=== PATIENT | male | born 1955 | race Caucasian/White ===

== ENCOUNTER 2021-04-12 06:29 | Outpatient (REF) | payer MEDICARE, BC, SELFPAY ==
[2021-04-12 12:07] LABS: Prostate Specific Antigen Scr < 0.05 ng/mL (<0.05-4.0); TSH reflex Free T4 2.95 uIU/mL (0.32-4.0)
[2021-04-12 12:20] LABS: Alanine Aminotransferase 39 U/L (0-40); Albumin Level 4.3 g/dL (3.5-5.0); Alkaline Phosphatase 90 U/L (39-117); Anion Gap 11 (12-20); Aspartate Amino Transferase 32 U/L (5-37); Blood Urea Nitrogen 15 mg/dL (9-16); Calcium 9.6 mg/dL (8.4-10.2); Carbon Dioxide 33 mmol/L (22-29); Chloride 102 mmol/L (96-108); Cholesterol 124 mg/dL; Estimated Glomerular Filt Rate > 60; Glucose Fasting 115 mg/dL (60-99); HDL Cholesterol 40 mg/dL; LDL Cholesterol Calculated 67 mg/dl; Potassium 2.9 mmol/L (3.3-5.1); Sodium 143 mmol/L (135-145); Total Protein 6.7 g/dL (6.5-8.0); Triglycerides 85 mg/dL
== END 2021-04-12 06:30 | disposition home or self-care (01) ==
LOC: HO.HMGCLDS 06:29
PROVIDERS: PCP Nurse Practitioner Family; Visit Provider Nurse Practitioner Family
DX: Z00.00 Encounter for general adult medical examination without abnormal findings (principal); Z12.5 Encounter for screening for malignant neoplasm of prostate
CPT/HCPCS: 36415; 80053; 80061; 84153; 84443

== ENCOUNTER 2021-04-18 06:01 | Outpatient (REF) | payer MEDICARE, SELFPAY ==
[2021-04-18 11:19] LABS: Appearance Urine CLEAR; Color Urine YELLOW; Glucose Urine UA NEG (NEG); Leukocyte Esterase Urine NEG (NEG); Nitrite Urine NEG (NEG); Urine Blood NEG (NEG); Urine Ketones NEG (NEG); Urine Protein NEG (NEG-TRACE)
[2021-04-18 11:34] LABS: Potassium 3.6 mmol/L (3.3-5.1)
== END 2021-04-18 06:02 | disposition home or self-care (01) ==
LOC: HO.HMGCLDS 06:01
PROVIDERS: PCP Nurse Practitioner Family; Visit Provider Internal Medicine
DX: Z00.00 Encounter for general adult medical examination without abnormal findings (principal); E87.6 Hypokalemia
CPT/HCPCS: 36415; 81003; 84132

== ENCOUNTER 2021-07-01 06:37 | Outpatient (REF) | payer MEDICARE, SELFPAY ==
[2021-07-01 12:24] LABS: Alanine Aminotransferase 36 U/L (0-40); Albumin Level 4.5 g/dL (3.5-5.0); Alkaline Phosphatase 93 U/L (39-117); Anion Gap 12 (12-20); Aspartate Amino Transferase 33 U/L (5-37); Bilirubin Total 0.9 mg/dL (0.0-1.0); Blood Urea Nitrogen 22 mg/dL (9-16); Calcium 9.7 mg/dL (8.4-10.2); Carbon Dioxide 34 mmol/L (22-29); Chloride 100 mmol/L (96-108); Cholesterol 134 mg/dL; Estimated Glomerular Filt Rate 52; Glucose Fasting 111 mg/dL (60-99); HDL Cholesterol 44 mg/dL; LDL Cholesterol Calculated 71 mg/dl; Potassium 3.1 mmol/L (3.3-5.1); Sodium 143 mmol/L (135-145); Total Protein 7.1 g/dL (6.5-8.0); Triglycerides 96 mg/dL
== END 2021-07-01 06:38 | disposition home or self-care (01) ==
LOC: HO.HMGCLDS 06:37
PROVIDERS: PCP Nurse Practitioner Family; Visit Provider Nurse Practitioner Family
DX: F41.9 Anxiety disorder, unspecified (principal); E87.6 Hypokalemia
CPT/HCPCS: 36415; 80053; 80061; 84443

== ENCOUNTER 2021-07-11 07:10 | Emergency (ER) | payer MEDICARE, SELFPAY ==
--- NOTE | ~2021-07-11 | XR_ITS ---
EXAMINATION: XR SHOULDER, RIGHT CLINICAL INFORMATION: Fall. COMPARISON: None TECHNIQUE: AP external rotation, Grashey a, transscapular radiographs of the right shoulder. . FINDINGS: No fractures identified. Glenohumeral joint spacing and alignment are within normal limits. Visualized right ribs and lung are normal in appearance. Partial visualization is made of multilevel thoracic vertebral body endplate osteophytosis. Mild osteophytosis of the acromioclavicular joint is present. No dystrophic soft tissue calcifications. XR/XR shoulder RT min 2V IMPRESSION: No acute abnormalities. No fractures or acute subluxations.
[2021-07-11 07:31] VITALS: BP 166/88; PULSE 76; RESP 19; TEMP 36.6; O2SAT 99; BMI 27.3
--- NOTE | 2021-07-11 08:47 | ED.EXTPRO ---
HPI - Extremity Problem General Chief complaint: Extremity Injury, Upper Stated complaint: Fall/ shoulder pain Time Seen by Provider: 07/11/21 08:47 Source: patient Mode of arrival: ambulatory Limitations: no limitations History of Present Illness HPI Narrative: 65 y/o male with history of Parkinson's disease, Lewy body dementia, anxiety, HTN, GERD, remote history alcoholic and substance abuse who presents to the ER today for evaluation of right shoulder pain that started after he slipped and fell on the ice this morning at 06:15. Patient reports it all happened so fast so we has a hard time recalling the exact way that he fell. He states he slipped on ice and tried to catch himself but fell onto his right shoulder he thinks. He thinks he heard a pop or a snap. He has been having pain with abduction since. He has no numbness, weakness, tingling. He is right-hand dominant. He reports the pain is located at the lateral aspect of his shoulder and is only present when he tries to abduct his shoulder, no pain at rest. MD Complaint: joint paint Onset (ago): hour(s) (3) Pain Consistency: intermittent Location: right and upper extremity Severity scale (1-10): 10 Quality: stabbing Radiation: none Relieving factors: immobilization and rest Exacerbating factors: range of motion Associated symptoms: denies other symptoms Related Data Home Medications Medication Instructions Recorded Confirmed amantadine HCl 100 mg tablet 100 mg PO BID 04/09/21 06/12/21 amlodipine 10 mg tablet 10 mg PO DAILY 04/09/21 06/12/21 aspirin 81 mg chewable tablet 1 tab PO DAILY 04/09/21 06/12/21 carbidopa 25 mg-levodopa 100 mg 1 tab PO TID 04/09/21 06/12/21 tablet carvedilol 25 mg tablet 25 mg PO BID 04/09/21 06/12/21 chlorthalidone 25 mg tablet 25 mg PO DAILY 04/09/21 06/12/21 fluticasone propionate 50 spray INTRANASAL 04/09/21 06/12/21 mcg/actuation nasal spray,suspension melatonin 10 mg tablet,extended 10 mg PO BEDTIME 04/09/21 06/12/21 release,multiphase mirtazapine 7.5 mg tablet 7.5 mg PO BEDTIME 04/09/21 06/12/21 nitroglycerin 0.4 mg sublingual 0 mg SUBLINGUAL 04/09/21 06/12/21 tablet rosuvastatin 40 mg tablet 40 mg PO DAILY 04/09/21 06/12/21 bupropion HCl 150 mg 24 hr tablet, 150 mg PO QAM 06/12/21 06/12/21 extended release valacyclovir 1 gram tablet 1,000 mg PO TID PRN tab 06/12/21 06/12/21 Previous Rx's Medication Instructions Recorded omeprazole 20 mg capsule,delayed 20 mg PO DAILY #90 cap 07/04/21 release Allergies Allergy/AdvReac Type Severity Reaction Status Date / Time peanut [PEANUT] Allergy Mild RASH Verified 06/12/21 10:33 shellfish derived Allergy Mild RASH Verified 06/12/21 10:33 [SHELLFISH DERIVED] gluten Allergy Muscle Pain Verified 06/12/21 10:33 Peanuts Allergy Unknown Oral Uncoded 06/12/21 10:33 outbreak Shellfish Allergy Unknown Chest Uncoded 06/12/21 10:33 pain, difficulty breathing Review of Systems Review of Systems: Constitutional: No Fever, No Chills Cardiovascular: No Chest Pain, No SOB Gastrointestinal: No Nausea, No Vomiting, No abdominal Pain Musculoskeletal: + joint pain, No Myalgias Skin: No Skin Lesions, No rash Neuro: No Weakness, No Numbness Heme/Lymph: No Bruising, No Lymphadenopathy PMFSH Past Medical History Medical History (Updated 07/11/21 @ 08:59 by GERA Ferrera) Hypokalemia Lewy body dementia Parkinsons Social History Social History Housing: House Patient Tobacco Use Status: Former Tobacco user Years Smoked: 35 years ago e-Cigarette/Vaping Use: Never Used Second Hand Smoke Exposure: No Advance Directives: No Advance Directives Information Provided: No service: No Current occupational status: retired Physical Exam Vital Signs: Vital Signs: Last Vital Signs Temp 98 F 07/11/21 07:31 Pulse 76 07/11/21 07:31 Resp 19 07/11/21 07:31 BP 166/88 H 07/11/21 07:31 Pulse Ox 99 07/11/21 07:31 BMI result Body Mass Index 27.3 Appearance: Alert. Oriented X3. No acute distress. HEENT: normal inspection CVS: Normal heart rate and rhythm. Pulses normal. Respiratory: No respiratory distress. Skin: Skin warm and dry. Normal skin color. Normal skin turgor. No rashes. Extremities: normal inspection of right shoulder. nontender throughout. pain with passive abduction at about 45 degrees, unable to raise to 90 without severe pain. no crepitus. nontender scapula. no ecchymosis. NV intact distally. normal ROM of the right elbow and wrist without tenderness. Neuro: Oriented X 3. No motor deficit. No sensory deficit. Course Course Course Narrative: 65-year-old male presenting with right shoulder pain status post mechanical fall this morning the ice. Exam revealing lateral aspect of the shoulder in the area of the proximal humerus with some tenderness. Pain with abduction. His x-rays were reviewed and are negative for acute fracture. Most likely sprain, concern for possible ligamentous injury therefore will refer to orthopedics for further management. Will place in sling for immobilization. He is deferring pain medication at this time. He will take Motrin and ice the area several times per day. Stable for discharge home with orthopedic follow-up. Discharge Plan Discharge Clinical Impression: Sprain of right shoulder Qualifiers: Encounter type: initial encounter Shoulder sprain type: unspecified sprain Qualified Code(s): S43.401A - Unspecified sprain of right shoulder joint, initial encounter Patient Disposition: Home, Self-Care Instructions: Shoulder Sprain (ED) Additional Instructions: Your x-ray today was normal. Recommend rest and immobilizing your shoulder with the provided sling. Recommend ice several times per day and ibuprofen 600-800 mg every 6-8 hours Follow up with Orthopedics for further evaluation and treatment Prescriptions: No Action omeprazole 20 mg capsule,delayed release(DR/EC) 20 mg PO DAILY Qty: 90 RF: 0 aspirin 81 mg tablet,chewable 1 tab PO DAILY RF: 0 nitroglycerin 0.4 mg tablet, sublingual 0 mg sublingual RF: 0 carbidopa-levodopa 25-100 mg tablet 1 tab PO TID RF: 0 amlodipine 10 mg tablet 10 mg PO DAILY RF: 0 amantadine HCl 100 mg tablet 100 mg PO BID RF: 0 chlorthalidone 25 mg tablet 25 mg PO DAILY RF: 0 carvedilol 25 mg tablet 25 mg PO BID RF: 0 rosuvastatin 40 mg tablet 40 mg PO DAILY RF: 0 mirtazapine 7.5 mg tablet 7.5 mg PO BEDTIME RF: 0 melatonin 10 mg tablet,ext release multiphase 10 mg PO BEDTIME RF: 0 fluticasone propionate 50 mcg/actuation spray,suspension intranasal RF: 0 bupropion HCl 150 mg tablet extended release 24 hr 150 mg PO QAM RF: 0 valacyclovir 1 gram tablet 1,000 mg PO TID PRNRF: 0 Referrals: Ilir Stack MD [Physician] - 2 days (right shoulder pain s/p fall, XR negative) Interventions: ED Discharge Assessment Last Done: 07/11/21 09:20 Discharge Date/Time: 07/11/21 09:20
== END 2021-07-11 09:20 | disposition home or self-care (01) ==
PROVIDERS: Emergency Provider Emergency Medicine Emergency Medical Services; PCP Nurse Practitioner Family
DX: S43.401A Unspecified sprain of right shoulder joint, initial encounter (principal); W00.0XXA Fall on same level due to ice and snow, initial encounter; Y93.01 Activity, walking, marching and hiking; Y92.9 Unspecified place or not applicable; Y99.9 Unspecified external cause status
CPT/HCPCS: 73030; 99283; 99284

== ENCOUNTER → 2021-08-01 09:52 | Outpatient (BNVA) | payer MEDICARE, SELFPAY | PROVIDERS: PCP Nurse Practitioner Family; Visit Provider Physician Assistant | DX: M75.81 Other shoulder lesions, right shoulder (principal) | CPT/HCPCS: 20610; 99202; J1040 ==

== ENCOUNTER 2021-08-06 10:27 | Outpatient (REF) | payer MEDICARE, SELFPAY ==
[2021-08-06 12:14] LABS: Anion Gap 13 (12-20); Carbon Dioxide 36 mmol/L (22-29); Chloride 98 mmol/L (96-108); Potassium 3.2 mmol/L (3.3-5.1); Sodium 144 mmol/L (135-145)
== END 2021-08-06 10:28 | disposition home or self-care (01) ==
LOC: HO.HMGCLDS 10:27
PROVIDERS: PCP Nurse Practitioner Family; Visit Provider Nurse Practitioner Family
DX: E87.6 Hypokalemia (principal)
CPT/HCPCS: 36415; 80051

== ENCOUNTER 2022-06-10 14:34 | Outpatient (REF) | payer MEDICARE, SELFPAY | END 2022-06-10 14:35 | disposition home or self-care (01) | LOC: HO.SH 14:34 | PROVIDERS: Visit Provider Nurse Practitioner Family | DX: H90.72 Mixed conductive and sensorineural hearing loss, unilateral, left ear, with unrestricted hearing on the contralateral side (principal); H93.13 Tinnitus, bilateral | CPT/HCPCS: 92557; 92567 ==

== ENCOUNTER 2022-10-09 08:41 | Outpatient (REF) | payer MEDICARE, BC, SELFPAY ==
--- NOTE | ~2022-10-09 | XR_ITS ---
EXAMINATION: XR lumbar spine 2-3V CLINICAL INFORMATION: Reason for Exam M54.50 - Low back pain, unspecified COMPARISON: None TECHNIQUE: 3 views of the lumbar spine FINDINGS: 5 nonrib-bearing lumbar-type vertebral bodies. Vertebral body heights are maintained. Alignment is maintained. Moderate multilevel degenerative disc disease with loss of disc space height, facet arthropathy and disc osteophyte complexes. This is worst at L5/S1. Atherosclerotic calcifications of the abdominal aorta. XR/XR lumbar spine 2-3V IMPRESSION: Moderate spondylosis of the lumbar spine, as above detailed.
[2022-10-09 11:12] LABS: MANUAL DIFF FLAG NO
[2022-10-09 11:25] LABS: Basophils Percent Auto 0.4 % (0-2); Eosinophils Absolute Auto 0.3 X10*3/uL (0.0-0.4); Eosinophils Percent Auto 3.9 % (0-4); Hematocrit 50.2 % (42.0-52.0); Hemoglobin 17.1 g/dl (14.0-18.0); Imm Gran Abs Auto 0.02 X10*3/uL (0.00-0.03); Imm Gran Pct Auto 0.3 % (0.0-0.4); Lymphocytes Absolute Auto 2.1 X10*3/uL (1.2-4.9); Lymphocytes Percent Auto 29.5 % (20-40); Mean Corpuscular HGB Conc 34.1 g/dl (31.0-36.0); Mean Corpuscular Volume 90.9 fL (80.0-98.0); Mean Platelet Volume 9.4 fL (9.4-12.4); Monocytes Absolute Auto 0.5 X10*3/uL (0.1-1.2); Monocytes Percent Auto 6.8 % (2-11); Neutrophils Absolute Auto 4.2 x10*3/uL (2.0-8.3); Neutrophils Percent Auto 59.1 % (45-73); Platelet Count 233 X10*3/uL (160-400); Red Blood Count 5.52 X10*6/uL (4.60-5.80); Red Cell Distribution Width 12.2 % (11.0-16.0); White Blood Count 7.1 X10*3/uL (4.8-10.8)
[2022-10-09 11:59] LABS: Appearance Urine Clear; Color Urine Yellow; Glucose Urine UA Negative (Negative); Leukocyte Esterase Urine Negative (Negative); Nitrite Urine Negative (Negative); PH 5.5 (5.0-9.0); Specific Gravity - Urine >= 1.030 (1.005-1.025); Urine Blood Negative (Negative); Urine Ketones Negative (Negative); Urine Protein Negative (Neg-Trace)
[2022-10-09 12:00] LABS: Alanine Aminotransferase 25 U/L (0-40); Albumin Level 4.5 g/dL (3.5-5.0); Alkaline Phosphatase 128 U/L (39-117); Anion Gap 14 (12-20); Aspartate Amino Transferase 27 U/L (5-37); Bilirubin Total 1.2 mg/dL (0.0-1.0); Blood Urea Nitrogen 19 mg/dL (9-16); Calcium 9.2 mg/dL (8.4-10.2); Carbon Dioxide 28 mmol/L (22-29); Chloride 104 mmol/L (96-108); Cholesterol 140 mg/dL; Estimated Glomerular Filt Rate 59; Glucose Fasting 95 mg/dL (60-99); HDL Cholesterol 39 mg/dL; LDL Cholesterol Calculated 77 mg/dl; Potassium 4.2 mmol/L (3.3-5.1); Sodium 142 mmol/L (135-145); Total Protein 6.8 g/dL (6.5-8.0); Triglycerides 123 mg/dL
[2022-10-09 12:05] LABS: Prostate Specific Antigen Scr < 0.10 ng/mL (<0.05-4.0); TSH reflex Free T4 3.33 uIU/mL (0.32-4.0)
== END 2022-10-09 08:42 | disposition home or self-care (01) ==
LOC: HO.HMGCLDS 08:41
PROVIDERS: PCP Nurse Practitioner Family; Visit Provider Nurse Practitioner Family
DX: Z12.5 Encounter for screening for malignant neoplasm of prostate (principal); I10 Essential (primary) hypertension; M54.50 Low back pain, unspecified; G89.29 Other chronic pain
CPT/HCPCS: 36415; 72100; 80053; 80061; 81003; 84153; 84443; 85025

== ENCOUNTER 2023-01-13 12:20 | Outpatient (REF) | payer MEDICARE, BC, SELFPAY ==
[2023-01-13 16:51] LABS: Gamma Glutamyl Transpeptidase 44 U/L (11-51)
[2023-01-21 16:39] LABS: Alk.Phos Iso. Macrohepatic 0 % (<=0); Alk.Phos Isoenzymes Bone 30 % (28-66); Alk.Phos Isoenzymes Intest 0 % (1-24); Alk.Phos Isoenzymes Liver 70 % (25-69); Alk.Phos Isoenzymes Placental 0 % (<=0); Alk.Phos Isoenzymes Total 91 U/L (35-144)
== END 2023-01-13 12:21 | disposition home or self-care (01) ==
LOC: HO.HMGCLDS 12:20
PROVIDERS: PCP Nurse Practitioner Family; Visit Provider Nurse Practitioner Family
DX: R74.8 Abnormal levels of other serum enzymes (principal)
CPT/HCPCS: 36415; 82977; 84080

== ENCOUNTER 2023-02-10 14:00 | Outpatient (RCR) | payer MEDICARE, BC, SELFPAY ==
--- NOTE | 2023-02-10 15:26 | MHC.OT.EP ---
[address] [phone] Occupational Therapy Plan of Care Patient Name: Michael Lama Date of Evaluation: 02/10/23 Diagnosis: Parkinsons disease Pain Location: None reported Pain Score: Pain Scale Used: Aggravating Factors: Tremors are worse when eating and trying to use the computer Alleviating Factors: Assessment: Pt is a 67 year old male diagnosed with Parkinson's approx 2 years ago. Pt reports having increasing difficulty using his computer mouse and using utensils due to tremors and decreased fine motor skills. Pt. pleasant and cooperative, motivated to learn, although requesting OT consult only stating he will do all exercises at home. Pt. was educated in AE for computer use, built up and/or weight utensils, and importance of incorporating some cardio and flexibility training into his daily routine. Pt. was also issued hand exercises and fine motor coordination ideas to maintain and improve hand function. Pt. was issued with website and handout resources. Recorded baseline gross grasp and FM coordination. Frequency and Duration: The patient will be seen OT Eval only Short Term Goals: Educate pt in AE use for computer use and eating - MET Educate pt. in HEP for improving hand function - MET Fdc Goals: Treatment Plan: Home Exercise Program Patient Education Pt requesting OT consult only. Motivated to complete exercises at home and pt. was issued resources for obtaining adaptive equipment as needed. Electronically Signed By: Judy Mora MS OTR/L Please Sign and return to therapist. Thank you once again for your referral.
== END 2023-11-17 15:51 | disposition home or self-care (01) ==
LOC: HO.OT 14:00
PROVIDERS: PCP Nurse Practitioner Family; Visit Provider Nurse Practitioner Family
DX: G20 Parkinson's disease (principal)
CPT/HCPCS: 97110; 97165; 97530

== ENCOUNTER 2023-04-13 10:18 | Outpatient (AMB) | payer MEDICARE, BC, SELFPAY ==
--- NOTE | 2023-04-13 10:31 | A.OFFVIS_ITS ---
Intake Vital Signs 04/13/23 10:35 Height 5 ft 8 in Weight 195 lb BMI 29.6 BP 140/100 H Blood Pressure Location Lt brachial Position Sitting Pulse 72 Pulse Source Pulse Oximeter Pulse Oximetry (%) 95 Oxygen Delivery Method Room Air Intake Visit Reasons: SWV Allergies peanut [PEANUT] Allergy (Mild, Verified 04/13/23 11:13) RASH shellfish derived [SHELLFISH DERIVED] Allergy (Mild, Verified 04/13/23 11:13) RASH gluten Allergy (Verified 04/13/23 11:13) Muscle Pain Peanuts Allergy (Unknown, Uncoded 04/13/23 11:13) Oral outbreak Shellfish Allergy (Unknown, Uncoded 04/13/23 11:13) Chest pain, difficulty breathing Medication List - Last Reconciled 04/13/23 by PILAR Doherty amlodipine 10 mg PO DAILY aspirin 1 tab PO DAILY carbidopa-levodopa 25-100 mg 1.5 tabs PO TID carvedilol 25 mg PO BID escitalopram oxalate (Lexapro) 10 mg PO DAILY losartan 100 mg PO DAILY mirtazapine 7.5 mg PO BEDTIME naproxen 500 mg PO BID PRN 30 days nitroglycerin 0 mg sublingual omeprazole 20 mg PO DAILY rosuvastatin 40 mg PO DAILY Do you need a note to return to daycare/school/sports/work: No HPI SWV HPI Details Pt is here for an SWV. Denies fever, chills, and dizziness. [place] [employer] of care in scan pile (pt did not fill out). PPP will be scanned in chart and copy will be given to pt. Pt does have parkinsons. Pt sees a neurologist and red lead burner. Pt's sister is POA, HCP. Pt reports insomnia and mind racing at night. Pt is requesting lorazepam 0.5mg. Will have pt speak with his neurologist about this. [facility] Medical History Hypokalemia Lewy body dementia Parkinsons Surgical History H/O prostatectomy Family History Brother Substance use disorder Father Substance use disorder Sister Substance use disorder Social History Housing: House Patient Tobacco Use Status: Former Tobacco user Years Smoked: 35 years ago e-Cigarette/Vaping Use: Never Used Second Hand Smoke Exposure: No service: No Current occupational status: retired Cognitive needs: No Hearing needs: No Vision needs: No Questionnaire Medicare Wellness Checkup What [age] What gender do you identify with?: male During the past 4 weeks, how much have you been bothered by emotional problems such as feeling anxious, depressed, irritable, sad or downhearted, and blue?: moderately During the past 4 weeks, has your physical & emotional health limited your social activities with family, friends, neighbors, or groups?: moderately During the past 4 weeks, how much bodily pain have you generally had?: moderate pain During the past 4 weeks, was someone available to help you if you needed & wanted help?: yes, quite a bit During the past 4 weeks, what was the hardest physical activity you could do for at least 2 minutes?: light Can you get to places out of walking distance without help? (For eg., can you travel alone on buses, taxis or drive your car?): Yes Can you go shopping for groceries or clothes without someone's help?: Yes Can you prepare your own meals?: Yes Can you do your housework without help?: Yes Because of any health problems, do you need the help of another person with your personal care needs such as eating, bathing, dressing or getting around the house?: No Can you handle your own money without help?: No During the past 4 weeks, how would you rate your health in general?: fair During the past 4 weeks how have things been going for you?: good & bad parts about equal Are you having difficulties driving your car?: no Do you always fasten your seat belt when you are in a car?: yes, usually During past 4 weeks, have you been bothered by the following: never: Sexual problems?, Teeth or denture problems? and Problems using the telephone?, seldom: Falling or dizzy when standing up and Trouble eating well? and often: Tiredness or fatigue? Have you fallen 2 or more times in the past year?: No Are you afraid of falling?: Yes Are you a smoker?: no During the past 4 weeks, how many drinks of wine, beer, or other alcoholic beverages did you have?: no alcohol at all Do you exercise for about 20 minutes 3 or more times a week?: no, I usually do not exercise this much Have you been given information to help with the following?: no: Hazards in your house that might hurt you? and no: Keeping track of your medications? How often do you have trouble taking medicines the way you have been told to take them?: I always take medicine as prescribed How confident are you that you can control & manage most of your health problems?: somewhat confident What is your race?: White Mini Mental State Exam (MMSE) Orientation What is the (year) (season) (date) (day) (month)?: year (2022) Where are we (state) (county) (town or city) (hospital) (floor)?: state ([place]) Registration Name of 3 unrelated objects clearly and slowly, then ask patient to repeat all 3 of them. (1st repeat determines score. Make sure they can repeat all three): object 1, object 2 and object 3 Attention & Calculation (CHOOSE ONE) Spell WORLD backwards (DLROW): 2 letters Recall Ask patient to repeat the 3 items from question #3.: object 1, object 2 and object 3 Language Show patient a wristwatch & ask what it is. Repeat for pencil.: watch and pencil Ask the patient to repeat the phrase 'No ifs, ands, or buts' after you.: correct Ask the patient to 'take a piece of paper with their right hand' 'fold paper in half' 'place paper on floor': take paper in right hand, fold paper in half and place paper on floor Print the sentence 'CLOSE YOUR EYES' on a piece. If patient actually closes eyes then score.: followed written direction Give patient a blank piece of paper & ask to write a sentence. Score if it contains a noun & verb.: sentence contains subject and verb Score Score: 18 Activity of Daily Living Bathing - sponge bath, tub bath or shower: receives no assistance (gets in/out by self, if usual bathing means Dressing - getting clothes from closets & drawers, including inner/outer garments & fasteners.: gets clothes & gets completely dressed without help Toileting - going to the 'toilet room' for urine/bowel elimination & cleaning self/arranging clothes: goes to toilet room, cleans self, arranges clothes without help Transfer: moves in & out of bed and chair without help (may use support object) Continence: controls urination/bowel movements completely by self Feeding: feeds self without help Total Score: 0 Information obtained from: patient Using telephone: independent Traveling: independent Shopping: independent Preparing meals: independent Housework: independent Taking medicine: independent Managing money: dependent (sister, RORO, HCP) PHQ-9 Over the last 2 weeks, how often have you been bothered by any of the following problems? 1. Little interest or pleasure in doing things: several days 2. Feeling down, depressed, or hopeless: several days 3. Trouble falling or staying asleep, or sleeping too much: nearly every day 4. Feeling tired or having little energy: nearly every day 5. Poor appetite or overeating: more than half the days 6. Feeling bad about yourself - or that you are a failure or have let yourself or your family down: nearly every day 7. Trouble concentrating on things, such as reading the newspaper or watching television: nearly every day 8. Moving or speaking so slowly that other people could have noticed. Or the opposite - being so fidgety or restless that you have been moving around a lot more than usual: more than half the days 9. Thoughts that you would be better off or of hurting yourself in some w ay: not at all Total score: 18 Depression Screening Interpretation: Positive (pt has both a psychologist and psychiatrist) Depression Screening Follow-up: In treatment Depression Screening Done: Yes 78117 - PHQ-9 Billing: Yes Source: Developed by Drs. Osvaldo Fink, Selena Swenson, Rob Sweeney and colleagues, with an educational sonu from [employer]. Review of Systems Const Reports as per HPI Physical Exam Vital Signs: Last Vital Signs Pulse 72 04/13/23 10:35 BP 140/100 H 04/13/23 10:35 Pulse Ox 95 04/13/23 10:35 Oxygen Delivery Method Room Air 04/13/23 10:35 BMI result Body Mass Index 29.6 Const General: cooperative Orientation/consciousness: patient oriented x3 Neuro Other: - romberg, can tandem walk, can walk and turn, can rise from sitting to standing, passed whisper test General: patient oriented x3 Psych Appearance: grossly normal Mental Status: mental status grossly normal Speech and movement: Normal speech and movement present Affect: normal affect Attitude: cooperative Thought process: Normal thought process present Thought content: Normal thought content present Insight: Good insight present (Psych) Judgement: Good judgement present (Psych) Assessment & Plan Assessment & Plan (1) Encounter for subsequent annual wellness visit (AWV) in Medicare patient: Code(s): Z00.00 - Encounter for general adult medical examination without abnormal findings Plan The patient agreed to the use of a emergency medical service manager for this encounter. Scribed for ELE Martinez-KIMBERLI by Peggy March emergency medical service manager, on 04/13/2023 at 10:50 EST Quality Reporting (2019) Depression/Bipolar (159/160/161/177) PHQ-9: Total score: 18 Coding Level of Care Code Medicare Subsequent (G0439) Diagnoses Encounter for subsequent annual wellness visit (AWV) in Medicare patient Z00.00 CPT Codes Advance Care Planning - Time spent: 1-15 minutes, not on file ([id number]) Advance Care Planning Forms completed: Health Care Proxy (pt thinks this is at his house. ), MOLST (form given to pt to fill out with POA) and Living will (pt reports, my sister does everything ) Time spent: 1-15 minutes, not on file
[2023-04-13 10:35] VITALS: BP 140/100; PULSE 72; O2SAT 95; BMI 29.6
== END 2023-04-13 11:43 | disposition home or self-care (01) ==
PROVIDERS: Visit Provider Nurse Practitioner Family
DX: Z00.00 Encounter for general adult medical examination without abnormal findings (principal)
CPT/HCPCS: 1124F; G0439

== ENCOUNTER 2023-09-23 08:00 | Outpatient (AMB) | payer MEDICARE, SELFPAY ==
[2023-09-23 08:07] VITALS: BP 128/78; PULSE 76; TEMP 36.7; O2SAT 97; BMI 29.6
--- NOTE | 2023-09-23 08:07 | MHC.OFFWIV ---
Intake Vital Signs 09/23/23 08:07 Height 5 ft 8 in Weight 195 lb BMI 29.6 BP 128/78 Blood Pressure Location Lt brachial Position Sitting Pulse 76 Pulse Source Pulse Oximeter Temp 98.1 F Temp Source Temporal Artery Scan Pulse Oximetry (%) 97 Oxygen Delivery Method Room Air Intake Visit Reasons: EP Lower LT AB pain Intake Note: pt is here for lower left abd pain, ongoing for 3 weeks and patient has Parkinson which causes memory loss but he suspects its been 3 weeks Patient Tobacco Use Status: Former Tobacco user Allergies peanut [PEANUT] Allergy (Mild, Verified 09/23/23 08:07) RASH shellfish derived [SHELLFISH DERIVED] Allergy (Mild, Verified 09/23/23 08:07) RASH gluten Allergy (Verified 09/23/23 08:07) Muscle Pain Peanuts Allergy (Unknown, Uncoded 04/13/23 11:13) Oral outbreak Shellfish Allergy (Unknown, Uncoded 04/13/23 11:13) Chest pain, difficulty breathing Do you need a note to return to daycare/school/sports/work: No HPI HPI Comments History of Present Illness Details 67 y/o male patient who presents to walk in clinic with c/o LLQ abdominal pain x 3 weeks. Pt reports that pain has been getting worse gradually. Describes the pain as sharp, to Dull. Pt Denies Nausea or vomiting. Denies constipation or diarrhea. Reports feeling bloated. [facility] Medical History Hypokalemia Lewy body dementia Parkinsons Surgical History H/O prostatectomy Family History Brother Substance use disorder Father Substance use disorder Sister Substance use disorder Social History Housing: House Patient Tobacco Use Status: Former Tobacco user Years Smoked: 35 years ago e-Cigarette/Vaping Use: Never Used Second Hand Smoke Exposure: No service: No Current occupational status: retired Cognitive needs: No Hearing needs: No Vision needs: No Review of Systems Const All systems reviewed & are unremarkable except as noted in HPI and below Physical Exam Vital Signs: Last Vital Signs Temp 98.1 F 09/23/23 08:07 Pulse 76 09/23/23 08:07 BP 128/78 09/23/23 08:07 Pulse Ox 97 09/23/23 08:07 Oxygen Delivery Method Room Air 09/23/23 08:07 BMI result Body Mass Index 29.6 Const General: no acute distress; No comfortable Orientation/consciousness: patient oriented x3 GI Inspection: No Abdominal wall edema, No distended and Yes obesity Palpation (GI): Soft to palpation, not firm, Tenderness to palpation present (GI) in the LLQ and in the RLQ, no guarding, not rigid, No hepatosplenomegaly present, no hernias and no masses Percussion: Yes normal to percussion Auscultation: normal bowel sounds Neuro General: patient oriented x3, gait normal and moves all extremities Psych Speech and movement: Normal speech and movement present Assessment & Plan Assessment & Plan (1) Left lower quadrant abdominal pain: Code(s): R10.32 - Left lower quadrant pain Plan: - Abd U/S today. - Muscle Pull vs Constipation. Orders: Orders US abdomen complete Today R10.32 - Left lower quadrant pain Coding Level of Care Code Est Pt Level 3 (21517) Diagnoses Left lower quadrant abdominal pain R10.32 Time Spent (min) 15
== END 2023-09-23 09:24 | disposition home or self-care (01) ==
PROVIDERS: PCP Nurse Practitioner Family; Visit Provider Nurse Practitioner Family
DX: R10.32 Left lower quadrant pain (principal)
CPT/HCPCS: 99213

== ENCOUNTER 2023-09-23 10:34 | Outpatient (REF) | payer MEDICARE, SELFPAY ==
--- NOTE | ~2023-09-23 | US_ITS ---
STUDY: Renal ultrasound INDICATION: Left flank pain, history of lower abdominal pain for 3 weeks. COMPARISON: None TECHNIQUE: Real-time ultrasound was used to scan the left flank and permanent documented images obtained. FINDINGS: Left kidney measures 13.3 x 5.3 x 5.9 cm. No hydronephrosis, suspicious mass lesions or calculi. 2.9 x 3.3 x 3.0 cm lower pole and 0.8 x 0.9 x 1 cm mid pole renal cysts are seen. US/US renal LT IMPRESSION: Nonhydronephrotic left kidney with simple appearing renal cysts.
== END 2023-09-23 10:35 | disposition home or self-care (01) ==
LOC: HO.HMGCX 10:34
PROVIDERS: PCP Nurse Practitioner Family; Visit Provider Nurse Practitioner Family
DX: R10.32 Left lower quadrant pain (principal)
CPT/HCPCS: 76775

== ENCOUNTER 2023-10-19 14:46 | Outpatient (AMB) | payer MEDICARE, BC, SELFPAY ==
--- NOTE | 2023-10-19 14:50 | A.OFFPC_ITS ---
Vital Signs 10/19/23 14:53 Height 5 ft 8 in Weight 187 lb BMI 28.4 BP 120/70 Blood Pressure Location Rt brachial Position Sitting Pulse 80 Pulse Source Pulse Oximeter Pulse Oximetry (%) 95 Oxygen Delivery Method Room Air Intake Visit Reasons: 6 month fu Intake Note: Patient here to discuss kidney stones that he still has not passed and bloating/low appetite. Allergies peanut [PEANUT] Allergy (Mild, Verified 10/19/23 14:55) RASH shellfish derived [SHELLFISH DERIVED] Allergy (Mild, Verified 10/19/23 14:55) RASH gluten Allergy (Verified 10/19/23 14:55) Muscle Pain Peanuts Allergy (Unknown, Uncoded 10/19/23 14:55) Oral outbreak Shellfish Allergy (Unknown, Uncoded 10/19/23 14:55) Chest pain, difficulty breathing Medication List - Last Reconciled 10/19/23 by Jere Diop, INNOVATIONS PARAPROFESSIONAL- amlodipine 10 mg PO DAILY aspirin 1 tab PO DAILY carbidopa-levodopa 25-100 mg 1.5 tabs PO TID carvedilol 25 mg PO BID escitalopram oxalate (Lexapro) 10 mg PO DAILY losartan 100 mg PO DAILY mirtazapine 7.5 mg PO BEDTIME naproxen 500 mg PO BID PRN 30 days nitroglycerin 0 mg sublingual omeprazole 20 mg PO BID rosuvastatin 40 mg PO DAILY trazodone 100 mg PO BEDTIME Tobacco use date assessed: 10/19/23 Fall risk assessment: No Falls in past year Last assessed Fall Risk: 10/19/23 Dental Screening Dental Screen Date: 10/19/23 Did you have a dental visit in the last 12 months?: Yes Did you have a dental problem in the last 6 months where you did not have access to dental care?: No Was dental information given to patient?: Patient has dentist HPI 6 month fu HPI Details HTN: Blood pressure is stable, managed with amlodipine 10mg, carvedilol 25mg bid, and losartan 100mg. Denies chest pain, shortness of breath, headache, dizziness, and blurred vision. Pt c/o urinary frequency and weak stream. PSA has been ordered, encouraged pt to have labs drawn. Pt reports an ingrown toenail to his left big toe. He reports pain to both medial and lateral sides. Will refer to podiatry. [facility] Medical History Hypokalemia Lewy body dementia Parkinsons Surgical History H/O prostatectomy Family History Brother Substance use disorder Father Substance use disorder Sister Substance use disorder Social History Housing: House Patient Tobacco Use Status: Former Tobacco user Years Smoked: 35 years ago e-Cigarette/Vaping Use: Never Used Second Hand Smoke Exposure: No service: No Current occupational status: retired Cognitive needs: No Hearing needs: No Vision needs: No Questionnaire PHQ-9 Over the last 2 weeks, how often have you been bothered by any of the following problems? 1. Little interest or pleasure in doing things: nearly every day 2. Feeling down, depressed, or hopeless: several days 3. Trouble falling or staying asleep, or sleeping too much: more than half the days 4. Feeling tired or having little energy: nearly every day 5. Poor appetite or overeating: nearly every day 6. Feeling bad about yourself - or that you are a failure or have let yourself or your family down: nearly every day 7. Trouble concentrating on things, such as reading the newspaper or watching television: nearly every day 8. Moving or speaking so slowly that other people could have noticed. Or the opposite - being so fidgety or restless that you have been moving around a lot more than usual: nearly every day 9. Thoughts that you would be better off or of hurting yourself in some way: not at all Total score: 21 Depression Screening Interpretation: Positive Depression Screening Follow-up: Existing condition and In treatment Depression Screening Done: Yes 35745 - PHQ-9 Billing: Yes Source: Developed by Drs. Osvaldo Fink, Selena Swenson, Rob Sweeney and colleagues, with an educational sonu from [employer]. Thrive Questionnaire Date Thrive assessed: 10/08/22 AUDIT C Alcohol Use Questionnaire (AUDIT-C) 1. How often do you have a drink containing alcohol?: Never 3. How often do you have six or more drinks on one occasion?: Never Total Score: 0 Score Reviewed/Action Taken: No JIMMIE-7 AMB Questionnaire JIMMIE-7 Date JIMMIE - 7 assessed: 10/19/23 Feeling nervous, anxious, or on edge: 1 = Several days Not being able to stop or control worryin = Not at all Worrying too much about different things: 1 = Several days Trouble relaxin = Several days Being so restless that it is hard to sit still: 1 = Several days Becoming easily annoyed or irritable: 1 = Several days Feeling afraid as if something awful might happen: 1 = Several days Total JIMMIE-7 score (0-4 normal; 5-9 mild; 10-14 moderate; 15-21 severe): 6 Source: Developed by Drs. Osvaldo Fink, Selena Swenson, Rob Sweeney and colleagues, with an educational sonu from [employer]. JIMMIE-7 Assessment Billing JIMMIE-7 Assessment Tool: JIMMIE-7 Assessment 86572 Review of Systems Const Reports as per HPI Physical exam (Primary Care) Vital Signs: Last Vital Signs Pulse 80 10/19/23 14:53 BP 120/70 10/19/23 14:53 Pulse Ox 95 10/19/23 14:53 Oxygen Delivery Method Room Air 10/19/23 14:53 BMI result Body Mass Index 28.4 Tobacco/Smoking Status: Tobacco use Status Tobacco use date assessed 10/19/23 10/19/23 14:58 Patient Tobacco Use Status Former Tobacco user 10/19/23 14:51 e-Cigarette/Vaping Use Never Used 10/19/23 14:51 Depression Screening Interpretation: Positive Depression Screening Follow-up: Existing condition and In treatment Thrive Assessment: Date of Thrive Assessment Date Thrive assessed 10/08/22 10/19/23 14:51 Const General: cooperative Orientation/consciousness: patient oriented x3 Resp Effort & Inspection: normal respiratory effort Auscultation: clear to auscultation bilaterally Cardio Rate: regular rate Rhythm: regular rhythm Heart sounds: S1 normal heart sound present and S2 normal heart sound present Neuro General: patient oriented x3 Extrem Other: left big toenail ingrown on lateral and medial sides, no active signs of infection, tenderness with palpation, no erythema Psych Appearance: grossly normal Mental Status: mental status grossly normal Speech and movement: Normal speech and movement present Affect: normal affect Attitude: cooperative Thought process: Normal thought process present Thought content: Normal thought content present Insight: Good insight present (Psych) Judgement: Good judgement present (Psych) Assessment and Plan Assessment & Plan (1) Ingrown toenail of left foot: Code(s): L60.0 - Ingrowing nail Plan: referring to podiatry, not currently infected (2) HTN (hypertension): Code(s): I10 - Essential (primary) hypertension Plan: stable Plan The patient agreed to the use of a manager medical device for this encounter. Scribed for PILAR Martinez by Peggy March manager medical device, on 10/19/2023 at 15:00 EST. Orders: Referrals Podiatry Referral L60.0 - Ingrowing nail Coding Level of Care Code Est Pt Level 3 (98817) Diagnoses Ingrown toenail of left foot L60.0 HTN (hypertension) I10 Additional Codes JIMMIE-7 Assessment Billing - JIMMIE-7 Assessment Tool: JIMMIE-7 Assessment 10881 ([id number])
[2023-10-19 14:53] VITALS: BP 120/70; PULSE 80; O2SAT 95; BMI 28.4
== END 2023-10-19 15:13 | disposition home or self-care (01) ==
PROVIDERS: PCP Nurse Practitioner Family; Visit Provider Nurse Practitioner Family
DX: I10 Essential (primary) hypertension (principal); L60.0 Ingrowing nail
CPT/HCPCS: 99213

== ENCOUNTER 2023-10-20 06:01 | Outpatient (REF) | payer MEDICARE, SELFPAY ==
[2023-10-20 10:30] LABS: MANUAL DIFF FLAG NO
[2023-10-20 10:40] LABS: Basophils Percent Auto 0.7 % (0-2); Eosinophils Absolute Auto 0.2 X10*3/uL (0.0-0.4); Eosinophils Percent Auto 2.9 % (0-4); Hematocrit 48.6 % (42.0-52.0); Hemoglobin 16.2 g/dl (14.0-18.0); Imm Gran Abs Auto 0.01 X10*3/uL (0.00-0.03); Imm Gran Pct Auto 0.2 % (0.0-0.4); Lymphocytes Absolute Auto 1.7 X10*3/uL (1.2-4.9); Lymphocytes Percent Auto 28.8 % (20-40); Mean Corpuscular HGB Conc 33.3 g/dl (31.0-36.0); Mean Corpuscular Hemoglobin 31.2 pg (27.0-33.0); Mean Corpuscular Volume 93.6 fL (80.0-98.0); Mean Platelet Volume 9.5 fL (9.4-12.4); Monocytes Absolute Auto 0.4 X10*3/uL (0.1-1.2); Monocytes Percent Auto 6.9 % (2-11); Neutrophils Absolute Auto 3.6 x10*3/uL (2.0-8.3); Neutrophils Percent Auto 60.5 % (45-73); Platelet Count 236 X10*3/uL (160-400); Red Blood Count 5.19 X10*6/uL (4.60-5.80); Red Cell Distribution Width 12.3 % (11.0-16.0); White Blood Count 5.9 X10*3/uL (4.8-10.8)
[2023-10-20 10:45] LABS: Appearance Urine Turbid; Color Urine Dark Yellow; Glucose Urine UA Negative (Negative); Leukocyte Esterase Urine Trace (Negative); Nitrite Urine Negative (Negative); PH 5.5 (5.0-9.0); Specific Gravity - Urine 1.025 (1.005-1.025); UMIC TRIGGER UACC YES; Urine Blood Negative (Negative); Urine Ketones Trace mg/dL (Negative); Urine Protein Trace mg/dL (Neg-Trace)
[2023-10-20 10:53] LABS: Bacteria Urine None Seen (None Seen); Hyaline Casts Urine 0-2 /LPF (0-2); RBC Urine 0-2 /HPF (0-2); Squamous Epithelial Cell Urine 0-2 /HPF (0-2); WBC Urine 0-5 /HPF (0-5)
[2023-10-20 11:07] LABS: Alanine Aminotransferase 29 U/L (0-40); Albumin Level 4.4 g/dL (3.5-5.0); Alkaline Phosphatase 91 U/L (39-117); Anion Gap 15 (12-20); Aspartate Amino Transferase 27 U/L (5-37); Bilirubin Total 0.8 mg/dL (0.0-1.0); Blood Urea Nitrogen 16 mg/dL (9-16); Calcium 9.5 mg/dL (8.4-10.2); Carbon Dioxide 25 mmol/L (22-29); Chloride 106 mmol/L (96-108); Cholesterol 119 mg/dL (<200); Estimated Glomerular Filt Rate > 60; Glucose Fasting 107 mg/dL (60-99); HDL Cholesterol 37 mg/dL (>40); LDL Cholesterol Calculated 67 mg/dL (<100); Potassium 4.5 mmol/L (3.3-5.1); Sodium 141 mmol/L (135-145); Total Protein 7.1 g/dL (6.5-8.0); Triglycerides 75 mg/dL (<150)
[2023-10-20 11:12] LABS: TSH reflex Free T4 0.78 uIU/mL (0.32-4.0)
[2023-10-20 11:16] LABS: Prostate Specific Antigen Scr < 0.10 ng/mL (<0.05-4.0)
== END 2023-10-20 06:02 | disposition home or self-care (01) ==
LOC: HO.HMGCLDS 06:01
PROVIDERS: PCP Nurse Practitioner Family; Visit Provider Nurse Practitioner Family
DX: Z12.5 Encounter for screening for malignant neoplasm of prostate (principal); I10 Essential (primary) hypertension
CPT/HCPCS: 36415; 80053; 80061; 81001; 84153; 84443; 85025

== ENCOUNTER 2024-05-02 13:36 | Outpatient (AMB) | payer MEDICARE, SELFPAY ==
[2024-05-02 13:48] VITALS: BP 120/78; PULSE 72; O2SAT 98; BMI 27.5
--- NOTE | 2024-05-02 13:48 | AM.OFFVISMDC ---
Intake Vital Signs 05/02/24 13:48 Height 5 ft 8 in Weight 181 lb BMI 27.5 BP 120/78 Blood Pressure Location Rt brachial Position Sitting Pulse 72 Pulse Source Pulse Oximeter Pulse Oximetry (%) 98 Intake Visit Reasons: SWV G0439 Allergies peanut [PEANUT] Allergy (Mild, Verified 05/02/24 17:24) RASH shellfish derived [SHELLFISH DERIVED] Allergy (Mild, Verified 05/02/24 17:24) RASH gluten Allergy (Verified 05/02/24 17:24) Muscle Pain Peanuts Allergy (Unknown, Uncoded 05/02/24 17:24) Oral outbreak Shellfish Allergy (Unknown, Uncoded 05/02/24 17:24) Chest pain, difficulty breathing Medication List - Last Reconciled 05/02/24 by PILAR Doherty amlodipine 10 mg PO DAILY aspirin 1 tab PO DAILY carbidopa-levodopa 25-100 mg 2 tabs PO TID carvedilol 25 mg PO BID escitalopram oxalate (Lexapro) 10 mg PO DAILY losartan 100 mg PO DAILY mirtazapine 7.5 mg PO BEDTIME naproxen 500 mg PO BID PRN 30 days nitroglycerin 0 mg sublingual omeprazole 20 mg PO BID rosuvastatin 40 mg PO DAILY trazodone 100 mg PO BEDTIME Do you need a note to return to daycare/school/sports/work: No HPI SWV [id number] HPI Details Pt is here for an SWV. Denies fever, chills, and dizziness. Teller of care not filled out. PPP will be scanned in chart and copy will be given to pt. HPI Comments History of Present Illness Details HTN: Blood pressure is stable, managed with amlodipine 10mg, carvedilol 25mg bid, and losartan 100mg. Denies chest pain, shortness of breath, headache, dizziness, and blurred vision. Pt has a hx of parkinson's. He is following up with neurology. [facility] Medical History Hypokalemia Lewy body dementia Parkinsons Surgical History H/O prostatectomy Family History Brother Substance use disorder Father Substance use disorder Sister Substance use disorder Social History Housing: House Patient Tobacco Use Status: Former Tobacco user Years Smoked: 35 years ago e-Cigarette/Vaping Use: Never Used Second Hand Smoke Exposure: No service: No Current occupational status: retired Cognitive needs: No Hearing needs: No Vision needs: No Questionnaire Medicare Wellness Checkup [age] 65-69 What gender do you identify with?: male During the past 4 weeks, how much have you been bothered by emotional problems such as feeling anxious, depressed, irritable, sad or downhearted, and blue?: moderately During the past 4 weeks, has your physical & emotional health limited your social activities with family, friends, neighbors, or groups?: moderately During the past 4 weeks, how much bodily pain have you generally had?: moderate pain During the past 4 weeks, was someone available to help you if you needed & wanted help?: yes, quite a bit During the past 4 weeks, what was the hardest physical activity you could do for at least 2 minutes?: light Can you get to places out of walking distance without help? (For eg., can you travel alone on buses, taxis or drive your car?): Yes Can you go shopping for groceries or clothes without someone's help?: Yes Can you prepare your own meals?: Yes Can you do your housework without help?: Yes Because of any health problems, do you need the help of another person with your personal care needs such as eating, bathing, dressing or getting around the house?: Yes Can you handle your own money without help?: No During the past 4 weeks, how would you rate your health in general?: good During the past 4 weeks how have things been going for you?: pretty well Are you having difficulties driving your car?: no Do you always fasten your seat belt when you are in a car?: yes, usually During past 4 weeks, have you been bothered by the following: never: Falling or dizzy when standing up, Sexual problems? and Problems using the telephone?, seldom: Trouble eating well? and Teeth or denture problems? and sometimes: Tiredness or fatigue? Have you fallen 2 or more times in the past year?: No Are you afraid of falling?: Yes Are you a smoker?: no During the past 4 weeks, how many drinks of wine, beer, or other alcoholic beverages did you have?: no alcohol at all Do you exercise for about 20 minutes 3 or more times a week?: no, I usually do not exercise this much Have you been given information to help with the following?: no: Hazards in your house that might hurt you? and no: Keeping track of your medications? How often do you have trouble taking medicines the way you have been told to take them?: I seldom take medications as prescribed How confident are you that you can control & manage most of your health problems?: somewhat confident What is your race?: White Mini Mental State Exam (MMSE) Orientation What is the (year) (season) (date) (day) (month)?: year, season, date and day Where are we (state) (county) (town or city) (hospital) (floor)?: state, county, town or city, hospital/clinic and floor Registration Name of 3 unrelated objects clearly and slowly, then ask patient to repeat all 3 of them. (1st repeat determines score. Make sure they can repeat all three): object 1, object 2 and object 3 Attention & Calculation (CHOOSE ONE) Spell WORLD backwards (DLROW): 5 letters Recall Ask patient to repeat the 3 items from question #3.: object 1, object 2 and object 3 Language Show patient a wristwatch & ask what it is. Repeat for pencil.: watch and pencil Ask the patient to repeat the phrase 'No ifs, ands, or buts' after you.: correct Ask the patient to 'take a piece of paper with their right hand' 'fold paper in half' 'place paper on floor': take paper in right hand, fold paper in half and place paper on floor Print the sentence 'CLOSE YOUR EYES' on a piece. If patient actually closes eyes then score.: followed written direction Give patient a blank piece of paper & ask to write a sentence. Score if it contains a noun & verb.: sentence contains subject and verb Score Score: 28 Activity of Daily Living Bathing - sponge bath, tub bath or shower: receives no assistance (gets in/out by self, if usual bathing means Dressing - getting clothes from closets & drawers, including inner/outer garments & fasteners.: gets clothes & gets completely dressed without help Toileting - going to the 'toilet room' for urine/bowel elimination & cleaning self/arranging clothes: goes to toilet room, cleans self, arranges clothes without help Transfer: moves in & out of bed and chair without help (may use support object) Continence: controls urination/bowel movements completely by self Feeding: feeds self without help Total Score: 0 Information obtained from: patient Using telephone: independent Traveling: independent Shopping: independent Preparing meals: independent Housework: independent Taking medicine: independent Managing money: needs assistance PHQ-9 Over the last 2 weeks, how often have you been bothered by any of the following problems? 1. Little interest or pleasure in doing things: more than half the days 2. Feeling down, depressed, or hopeless: several days 3. Trouble falling or staying asleep, or sleeping too much: more than half the days 4. Feeling tired or having little energy: more than half the days 5. Poor appetite or overeating: several days 6. Feeling bad about yourself - or that you are a failure or have let yourself or your family down: not at all 7. Trouble concentrating on things, such as reading the newspaper or watching television: several days 8. Moving or speaking so slowly that other people could have noticed. Or the opposite - being so fidgety or restless that you have been moving around a lot more than usual: nearly every day 9. Thoughts that you would be better off or of hurting yourself in some way: not at all Total score: 12 Depression Screening Interpretation: Positive Depression Screening Done: Yes 59169 - PHQ-9 Billing: Yes Source: Developed by Drs. Osvaldo Fink, Selena Swenson, Rob Sweeney and colleagues, with an educational sonu from [employer]. Review of Systems Const Reports as per HPI Physical Exam Vital Signs: Last Vital Signs Pulse 72 05/02/24 13:48 BP 120/78 05/02/24 13:48 Pulse Ox 98 05/02/24 13:48 BMI result Body Mass Index 27.5 Const General: cooperative Orientation/consciousness: patient oriented x3 Resp Effort & Inspection: normal respiratory effort Auscultation: clear to auscultation bilaterally Cardio Rate: regular rate Rhythm: regular rhythm Heart sounds: S1 normal heart sound present and S2 normal heart sound present Neuro Other: - romberg, can tandem walk, can walk and turn, can rise from sitting to standing, passed whisper test, small mouth tick, doll eyes General: patient oriented x3 Psych Appearance: grossly normal Mental Status: mental status grossly normal Speech and movement: Normal speech and movement present Affect: normal affect Attitude: cooperative Thought process: Normal thought process present Thought content: Normal thought content present Insight: Good insight present (Psych) Judgement: Good judgement present (Psych) Assessment & Plan Assessment & Plan (1) HTN (hypertension): Code(s): I10 - Essential (primary) hypertension Plan: Stable, labs ordered (2) Encounter for subsequent annual wellness visit (AWV) in Medicare patient: Code(s): Z00.00 - Encounter for general adult medical examination without abnormal findings Plan The patient agreed to the use of a manager medical writing for this encounter. Scribed for PILAR Martinez by Peggy March manager medical writing, on 05/02/2024 at 14:00 EST. Orders: Orders TSH reflex Free T4 Today I10 - Essential (primary) hypertension Lipid Panel Today I10 - Essential (primary) hypertension Complete Blood Count Auto Diff Today I10 - Essential (primary) hypertension Comprehensive [place]. Panel Fast Today I10 - Essential (primary) hypertension UA CC w/rflx Micro + Cult Today I10 - Essential (primary) hypertension Lipoprotein A Today I10 - Essential (primary) hypertension Quality Reporting (2019) Depression/Bipolar (159/160/161/177) PHQ-9: Total score: 12 Coding Level of Care Code Medicare Subsequent (G0439) Est Pt Level 3 (02474) Diagnoses HTN (hypertension) I10 Encounter for subsequent annual wellness visit (AWV) in Medicare patient Z00.00 Additional Codes PHQ-9 - 68950 - PHQ-9 Billing: Yes ([id number]) Advance Care Planning Forms completed: Health Care Proxy (will bring in a copy), MOLST (form scanned) and Living will (done, according to pt)
== END 2024-05-02 14:32 | disposition home or self-care (01) ==
PROVIDERS: PCP Nurse Practitioner Family; Visit Provider Nurse Practitioner Family
DX: Z00.00 Encounter for general adult medical examination without abnormal findings (principal); I10 Essential (primary) hypertension

== ENCOUNTER → 2024-05-02 13:36 | Outpatient (BNVA) | payer MEDICARE, SELFPAY | PROVIDERS: PCP Nurse Practitioner Family; Visit Provider Nurse Practitioner Family | DX: Z00.00 Encounter for general adult medical examination without abnormal findings (principal); I10 Essential (primary) hypertension | CPT/HCPCS: 96127; 99212 ==

== ENCOUNTER 2024-10-31 12:58 | Outpatient (AMB) | payer MEDICARE, SELFPAY ==
[2024-10-31 13:08] VITALS: BP 120/80; PULSE 79; O2SAT 97; BMI 26.8
--- NOTE | 2024-10-31 13:08 | MHC.PC.OV ---
Vital Signs 10/31/24 13:08 Height 5 ft 8 in Weight 176 lb BMI 26.8 BP 120/80 Blood Pressure Location Rt brachial Position Sitting Pulse 79 Pulse Source Pulse Oximeter Pulse Oximetry (%) 97 Oxygen Delivery Method Room Air Intake Visit Reasons: 6 months follow up Allergies peanut [PEANUT] Allergy (Mild, Verified 10/31/24 13:59) RASH shellfish derived [SHELLFISH DERIVED] Allergy (Mild, Verified 10/31/24 13:59) RASH gluten Allergy (Verified 10/31/24 13:59) Muscle Pain Peanuts Allergy (Unknown, Uncoded 10/31/24 13:59) Oral outbreak Shellfish Allergy (Unknown, Uncoded 10/31/24 13:59) Chest pain, difficulty breathing Medication List - Last Reconciled 10/31/24 by ELE Doherty- amlodipine 10 mg PO DAILY aspirin 1 tab PO DAILY carbidopa-levodopa 25-100 mg 3 tabs PO TID carvedilol 25 mg PO BID escitalopram oxalate (Lexapro) 10 mg PO DAILY losartan 100 mg PO DAILY mirtazapine 7.5 mg PO BEDTIME naproxen 500 mg PO BID PRN 30 days nitroglycerin 0 mg sublingual omeprazole 20 mg PO BID rosuvastatin 40 mg PO DAILY trazodone 150 mg PO BEDTIME Tobacco use date assessed: 10/31/24 Fall risk assessment: No Falls in past year Last assessed Fall Risk: 10/31/24 Dental Screening Dental Screen Date: 10/31/24 Did you have a dental visit in the last 12 months?: Yes Did you have a dental problem in the last 6 months where you did not have access to dental care?: No Was dental information given to patient?: Patient has dentist HPI 6 months follow up HPI Details Chief Complaint Patient is here for a follow-up for dyslipidemia and management of recent dog bite. History of Present Illness The patient is a 68-year-old male presenting with follow-up for dyslipidemia and management of recent dog bite. The lipid panel has not been completed despite being ordered months ago. The patient exhibits no new symptoms or concerns about dyslipidemia. Regarding the dog bite, the event occurred approximately one week prior on the left forearm with no subsequent signs of infection, such as erythema or purulent discharge, noted. The canine in question is confirmed to be assumed vaccinated. Healing is progressing, as evidenced by minor scabs forming at the location of the bite. Social History Health Maintenance - Updating Tdap vaccination as a prophylactic measure due to dog bite exposure Review of Systems - Cardiovascular: Denies chest pain - Respiratory: Denies shortness of breath - Gastrointestinal: Denies abdominal pain, blood in stool, constipation, diarrhea Physical Exam General: Cooperative, healthy appearing, comfortable, no acute distress and well developed Orientation: Patient oriented x3 Limitations: No limitations Head: Normal to inspection Ears: Hearing grossly normal bilaterally Nose: Normal external nose present Face and sinus: Normal facial exam Eyes: Appearance normal, both eyes and all related structures Neck: Normal visual inspection and Yes full ROM Respiratory: Normal respiratory effort and able to speak in complete sentences. Clear to auscultation bilaterally Cardiovascular: Regular rate and rhythm. Normal S1 and S2 GI: Normal to inspection. Soft to palpation and nontender Skin: No rashes or lesions noted. Small healed scab lesions on the left forearm, but nothing of concern Neuro: Patient oriented x3 Extremities: Normal to inspection Results - Labs: Lipid panels are pending as previously ordered Plan The patient's dyslipidemia management will continue, pending lipid panel results to guide any treatment adjustments. An updated Tdap vaccination will be administered due to the recent dog bite, which is healing well without infection signs. Monitoring for potential symptoms of infection will be ongoing, with further evaluation if required based on changes in condition or test outcomes. Discussion Notes I discussed with the patient the need to complete the lipid panel testing to better manage his dyslipidemia, emphasizing its significance in forming an appropriate treatment plan. We addressed the recent dog bite, noting the lack of infection symptoms and the vaccination status of the pet. I advised on the prophylactic administration of the Tdap vaccine due to exposure risks. We also reviewed returning for evaluation should any signs suggestive of infection or concerns arise. Patient Instructions - Complete the lipid panel tests as soon as possible. - Receive the Tdap vaccine today. - Monitor the dog bite site for any changes like increased redness, swelling, or discharge. - Return immediately if any concerning symptoms or changes occur. - Follow up based on test results or in case of worsening symptoms. [facility] Medical History Hypokalemia Lewy body dementia Parkinsons Surgical History H/O prostatectomy Family History Brother Substance use disorder Father Substance use disorder Sister Substance use disorder Social History Housing: House Patient Tobacco Use Status: Former Tobacco user Years Smoked: 35 years ago e-Cigarette/Vaping Use: Never Used Second Hand Smoke Exposure: No service: No Current occupational status: retired Cognitive needs: No Hearing needs: No Vision needs: No Questionnaire PHQ-9 Over the last 2 weeks, how often have you been bothered by any of the following problems? 1. Little interest or pleasure in doing things: more than half the days 2. Feeling down, depressed, or hopeless: several days 3. Trouble falling or staying asleep, or sleeping too much: more than half the days 4. Feeling tired or having little energy: more than half the days 5. Poor appetite or overeating: several days 6. Feeling bad about yourself - or that you are a failure or have let yourself or your family down: not at all 7. Trouble concentrating on things, such as reading the newspaper or watching television: several days 8. Moving or speaking so slowly that other people could have noticed. Or the opposite - being so fidgety or restless that you have been moving around a lot more than usual: nearly every day 9. Thoughts that you would be better off or of hurting yourself in some way: not at all Total score: 12 Depression Screening Interpretation: Positive (denies any si or hi) Depression Screening Follow-up: Existing condition and Declines treatment Depression Screening Done: Yes 40701 - PHQ-9 Billing: Yes Source: Developed by Drs. Osvaldo Fink, Selena Swenson, Rob Sweeney and colleagues, with an educational sonu from [employer]. Thrive Questionnaire Date Thrive assessed: 10/31/24 I am a: Patient What is your living situation today?: I have a steady place to live Within the past 12 months, did the food you bought not last and you didn't have the money to get more?: Never true Within the past 12 months, did you worry whether your food would run out before you got money to buy more?: Never true Do you have trouble paying for medicines?: No Do you have trouble getting transportation to medical appointments?: No Do you have trouble paying your heating and electricity bill?: No Do you have trouble taking care of your child, family member or friend?: No Do you have trouble with day-to-day activities such as bathing, preparing meals, shopping, managing finances, etc.?: Yes Are you currently unemployed and looking for a job?: No Are you interested in more education?: No Please select the resources that you would like help with: None Currently or been in a relationship where the following occur: No concerns reported THRIVE Score: 0 AUDIT C Alcohol Use Questionnaire (AUDIT-C) 1. How often do you have a drink containing alcohol?: Never 3. How often do you have six or more drinks on one occasion?: Never Total Score: 0 Score Reviewed/Action Taken: Yes JIMMIE-7 AMB Questionnaire JIMMIE-7 Date JIMMIE - 7 assessed: 10/31/24 Feeling nervous, anxious, or on edge: 1 = Several days Not being able to stop or control worryin = Not at all Worrying too much about different things: 1 = Several days Trouble relaxin = Several days Being so restless that it is hard to sit still: 1 = Several days Becoming easily annoyed or irritable: 1 = Several days Feeling afraid as if something awful might happen: 1 = Several days Total JIMMIE-7 score (0-4 normal; 5-9 mild; 10-14 moderate; 15-21 severe): 6 Source: Developed by Drs. Osvaldo Fink, Selena Swenson, Rob Sweeney and colleagues, with an educational sonu from [employer]. JIMMIE-7 Assessment Billing JIMMIE-7 Assessment Tool: JIMMIE-7 Assessment 11831 Physical exam (Primary Care) Vital Signs: Last Vital Signs Pulse 79 10/31/24 13:08 BP 120/80 10/31/24 13:08 Pulse Ox 97 10/31/24 13:08 Oxygen Delivery Method Room Air 10/31/24 13:08 BMI result Body Mass Index 26.8 Tobacco/Smoking Status: Tobacco use Status Tobacco use date assessed 10/31/24 10/31/24 13:13 Patient Tobacco Use Status Former Tobacco user 10/31/24 13:13 e-Cigarette/Vaping Use Never Used 10/31/24 13:13 PHQ-9: PHQ-9 Score PHQ-9: Total score 12 10/31/24 13:13 Depression Screening Interpretation: Positive (denies any si or hi) Depression Screening Follow-up: Existing condition and Declines treatment Thrive Assessment: Date of Thrive Assessment Date Thrive assessed 10/31/24 10/31/24 13:13 Currently or been in a relationship where the following occur: No concerns reported Coding Level of Care Code Est Pt Level 3 (67799) Diagnoses Dementia F03.90 Dog bite W54.0XXA Dyslipidemia E78.5 Additional Codes JIMMIE-7 Assessment Billing - JIMMIE-7 Assessment Tool: JIMMIE-7 Assessment 21238 ([id number]) PHQ-9 - 45056 - PHQ-9 Billing: Yes ([id number]) Assessment & Plan Assessment & Plan (1) Dementia: Code(s): F03.90 - Unspecified dementia, unspecified severity, without behavioral disturbance, psychotic disturbance, mood disturbance, and anxiety Category: Medical (2) Dog bite: Code(s): W54.0XXA - Bitten by dog, initial encounter Category: Medical (3) Dyslipidemia: Code(s): E78.5 - Hyperlipidemia, unspecified Category: Medical Plan . Orders: Orders Vitamin B12 and Folate Today F03.90 - Unspecified dementia, unspecified severity, without behavioral disturbance, psychotic disturbance, mood disturbance, and anxiety Medications: Refilled naproxen 500 mg PO BID 30 days PRN 60 tabs 0RF pain
--- OUTSIDE RECORDS SUMMARY | 2024-10-31 13:19 | XMS_ITS ---
[facility] Organization [facility] [place] Address [address] [place] [address] Care Team Providers Care Drain Cleaner Plumber Name Role Phone Jere Navas Primary Care Provider Unav Henry Collins Unavailable [phone] Allergies Allergen (clinical drug ingredient) Drug/Non Drug Allergy documented on EMR Reaction Allergy Type Onset Date Status Information temporarily unavailable peanuts-peanut butter Unknown Drug Allergy Active Information temporarily unavailable Codeine Unknown Drug Allergy Active Information temporarily unavailable shellfish Unknown Drug Allergy Active Medications Medication SIG (Take, Route, Frequency, Duration) Notes Start Date End Date Status Lisinopril 5 MG 1 tablet Orally Once a day for 30 day(s) Unknown Atenolol-Chlorthalidon e 100-25 MG 1 tablet Orally Once a day for 30 day(s) Unknown Ipratropium [place] Unknown Valtrex 1 GM Unknown Acetic Acid-HC [...] 01/21/2024 Encounters Encounter Location Date Provider Diagnosis [facility] [address] [place] [address] 01/21/2024 Henry Diaz Plan Of Treatment No Information Progress Notes * Michael LAMADOB:1955 (68 yo M)Acc No.[id number]:01/21/2024 Progress Notes Patient:?Michael LAMA Provider:?Henry Diaz DPM :1955???Age:68 Y???Sex:Male Huang e:01/21/2024 Address:[address] [place] [id number] Pcp:REYES Martinez Subjective: * Chief Complaints: * ??? * ROS:?General/Constitutional:?Nausea?denies.?Vomiting?denies.?Hunger Thirst?denies.?Loss appetite?denies.?Chills?denies.?Fatigue?denies.?Fever?denies.?Night Sweats?denies.?Unexplained weight loss?denies.?Unexplained weight gain?denies.?HEENTM:?Dentures?denies.?Dizziness?denies.?Glasses/contacts?denies.?Retinopathy?de nies.?Blurred/double vision?denies.?TMJ?denies.?Discharge/drainage?denies.?Implants?denies.?Sore throat?denies.?Dental implants?denies.?Hard of hearing ?denies.?Difficulty chewing/swallowing/speaking?denies.?Nose bleeds?denies.?Sore mouth?denies.?Respiratory:?On Oxygen?denies.?Pneumonia/pleurisy?denies.?Bronchitis?denies.?Emphysema?denies.?C oughing?denies.?Cough blood?denies.?Shortness of breath?denies.?Wheezing?denies.?Cardiovascular:?Pacemaker?denies.?MVP?denies.?WPW?denies.?CHF?denies.?Heart attack?denies.?Septal defect?denies.?Rapid beat?denies.?Chest pain ?denies.?Atrial Fib.?denies.?Murmur/Palpitations?denies.?Gastrointestinal:?Hemorrhoids?denies.?Stomach/Abdominal pain?denies.?Dark blood stool?denies.?Irritable bowel ?denies.?Constipation?denies.?Diarrhea?denies.?Hematology:?Swelling?denies.?Clots?denies.?Varicose Veins?denies.?Bruising?denies.?Bleeding problem?denies.?Genitourinary:?Blood urine?denies.?Frequent/Painfu/urination/bladder control?denies.?Kidney stones?denies.?Infection (UTI)?denies.?Nephropathy?denies.?sex trans dis (STD)?denies.?Prostate?denies.?Musculoskeletal:?Hammertoes?denies.?Bunions?denies.?Back Pain?denies.?Muscle Cramps/ Resting?denies.?Muscle cramps / walking?denies.?Generalized aches and pains?denies.?Weakness?denies.?Integ.:?Castellanos?denies.?Scars?denies.?Corns/calluses?denies.?Ingrown nails?denies.?Painful nails?denies.?Open Sores?denies.?Rashes?denies.?Neurologic:?Difficulty sleeping?denies.?Brain disorder?denies.?Numbness?denies.?Balance trouble?denies.?Confusion?denies.?Fainting/blackouts?denies.?Tingling?denies.?Tr emors?denies.? * Medical History:?Low back pa in, Hypertension, Prostate cancer, Herpes labialis, Anxiety, Allergic rhinitis, Arthritis, Chicken pox, CAD (Cholesterol), Depression, Heart disease, Numbness, Parkinsons disease, Reflux ( GERD). * Surgical History:?radical pr ostatectomy 2009, colonoscopy 10/10/2006, tonsillectomy 1960, 2 stents 2013. * Medications:?Taking Carbidop a-Levodopa , Notes to Pharmacist: 25mg/100mg 2 tablets [...] Orally Once a day , Unknown Ipratropium Towaoc , Unknown Lisinopril 5 MG Tablet 1 tablet Orally Once a day * Allergies:?Codeine, shellfis h, peanuts-peanut butter. Objective: * Vitals:?Ht: 5 ft 8 in, Wt:17 5 lbs, BMI:26.61, Shoe size: 8.5, Ht-cm: 172.72 cm, Wt-k.38 kg. Assessment: Plan: * Treatment: * Images: * The named appointment provid er may or may not be the originator of this progress note, and it is not deemed complete until electronically signed by the appointment provider. Sign off status: Pending * Provider:?Henry Diaz DPM Date:? 024 Generated for Americo hartley/Demi/Fernando on:?10/31/2024 01:18 PM EDT
--- OUTSIDE RECORDS SUMMARY | 2024-10-31 13:19 | XMS_ITS | Patient Health Record ---
Author Organization [facility] Address [address] [place] [address] Care Team Providers Care Quality Assurance Representative Name Role Phone Jere Navas Primary Care Provider Henry Barbosa Unavailable [phone] Allergies Allergen (clinical drug ingredient) Drug/Non Drug Allergy documented on EMR Reaction Allergy Type Onset Date Status Information temporarily unavailable peanuts-peanut butter Unknown Drug Allergy Active Information temporarily unavailable Codeine Unknown Drug Allergy Active Information temporarily unavailable shellfish Unknown Drug Allergy Active Reason For Referral No Information Medications Medication SIG (Take, Route, Frequency, Duration) Notes Start Date End Date Status Culturelle - as directed Orally Active Aspir-Low 81 MG 1 tablet Orally Once a day Active Lisinopril 5 MG 1 tablet Orally Once a day for 30 day(s) Unknown Carbidopa-Levodopa 25mg/100mg 2 tablets three times a day Active Cosamin DS Active Escitalopram Oxalate 10 MG 1 tablet Orally Once a day Active Multivitamins as directed Orally Active Equate 1 tablet as needed Active Naproxen 500 mg as neededequ Active Losartan Potassium 100 MG 1 tablet Orally Once a day Active Atenolol-Chlorthalidon e 100-25 MG 1 tablet Orally Once a day for 30 day(s) Unknown amLODIPine Besylate 10 MG 1 tablet Orally Once a day Active Ipratropium [place]hel[place] Unknown Nitroglycerin 0.4 mg every 5 min as needed Active Valtrex 1 GM Unknown Rosuvastatin Calcium 40 MG 1 tablet Orally Once a day Active Acetic Acid-HC Drops Unknown Omeprazole 20 mg twice a day A ctive Problems Problem Type SNOMED Code ICD Code Onset Dates Problem Status W/U Status Risk Notes Problem 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 Problem Plantar fasciitis (079809778) Plantar Fasciitis (728.71) Active confirmed Encounters Encounter Location Date Provider Diagnosis [facility] [place] [address] [place] [address] 01/19/2024 Henry Diaz Plan Of Treatment No Information Insurance Providers Payer Name Payer Address Payer Phone Subscriber Number Group Number Insured Name Patient Relationship to Insured Coverage Start Date Coverage End Date Medicare National [employer] [address] [place] [address] [id number] Michael Lama Self - patient is the insured [employer] [address] [place] [address] [phone] [id number] Michael Lama Self - patient is the insured Medical (General) History Medical History History ICD Code low back pain hypertension prostate cancer herpes labialis anxiety allergic rhinitis Arthritis Chicken pox CAD (Cholesterol) Depression Heart disease Numbness Parkinsons disease Reflux ( GERD) Surgical History Surgery Date(Month/Year) radical prostatectomy 2009 colonoscopy 10/10/2006 tonsillectomy 1960 2 stents 2014
--- OUTSIDE RECORDS SUMMARY | 2024-10-31 13:19 | XMS_ITS ---
Author Organization [facility] [place] Address [address] [place] [address] Care Team Providers Care Station Repairer Name Role Phone Jere Navas Primary Care Provider Unav ailable Henry Diaz [phone] REASON FOR VISIT cx 01/21/2024 Encounters Encounter Location Date Provider Diagnosis [facility] [address] [place] [address] 01/19/2024 Henry Diaz Plan Of Treatment No Information Progress Notes * Michael LAMADOB:1955 (68 yo M)Acc No.[id number]:01/19/2024 Patient:?Michael Lama :1955???Age:68 Y???Sex:Male Address:[address] [place] [address], [phone] * true * Date:? Generated for Floryi naeem/Demi/eTransmitting on:?10/31/2024 01:19 PM EDT
== END 2024-10-31 14:11 | disposition home or self-care (01) ==
LOC: HO.HMCC 12:59
PROVIDERS: PCP Nurse Practitioner Family; Visit Provider Nurse Practitioner Family
DX: F03.90 Unspecified dementia, unspecified severity, without behavioral disturbance, psychotic disturbance, mood disturbance, and anxiety (principal); W54.0XXA Bitten by dog, initial encounter; E78.5 Hyperlipidemia, unspecified

== ENCOUNTER → 2024-10-31 12:58 | Outpatient (BNVA) | payer MEDICARE, SELFPAY | PROVIDERS: PCP Nurse Practitioner Family; Visit Provider Nurse Practitioner Family | DX: F03.90 Unspecified dementia, unspecified severity, without behavioral disturbance, psychotic disturbance, mood disturbance, and anxiety (principal); E78.5 Hyperlipidemia, unspecified | CPT/HCPCS: 96127; 99212 ==

== ENCOUNTER 2025-02-22 15:26 | Emergency (ER) | payer MEDICARE, SELFPAY ==
--- OUTSIDE RECORDS SUMMARY | 2024-01-21 05:30 | XMS_ITS ---
Author Organization [facility] [place] Address [address] [place] [address] Care Team Providers Care Ob/Gyn Doctor Name Role Phone Jere Navas Primary Care Provider Unav Henry Collins Unavailable [phone] Allergies Allergen (clinical drug ingredient) Drug/Non Drug [...] a day; Duration: 30 day(s) Unknown Ipratropium Archbald Unknown Valtrex 1 GM Unknown Acetic Acid-HC [...] 01/21/2024 Encounters Encounter Location Date [facility] [address] [place] [address] 01/21/2024 Henry Diaz Plan Of Treatment No Information Progress Notes * Michael LAMADOB:1955 (69 yo M)Acc No.[id number]:01/21/2024 Progress Notes Patient: Michael MAYS Provider: Gena Diaz DPM :1955 A ge:68 Y S ex:Male Date:01/21/2024 Address:[address] [place] [phone] Pcp:Jere Diop NP-KIMBERLI Subjective: * Chief Complaints: [...] enies. C ardiovascular: Pacemaker d enies. M BELT TURNER d enies. W PW d enies. C [...] r adical prostatectomy 2009, colonoscopy 10/10/2006, tonsillectomy 1959, 2013. * Medications: T aking Carbidopa-Levodopa , [...] Orally Once a day , Unknown Ipratropium Archbald , Unknown Lisinopril 5 MG Tablet 1 [...] Pending * Provider: Gena Diaz DPM Date: 01/21/2024 Generated for Americo hartley/Demi/Fernando on: 02/22/2025 08:43 PM EDT
[2025-02-22] VITALS (8 sets, daily range): BP systolic 144–180; BP diastolic 81–90; PULSE 80–94; RESP 16–18; TEMP 36.7–36.9; O2SAT 94–95; BMI 26.7
--- NOTE | ~2025-02-22 | XR_ITS ---
EXAMINATION: XR ABDOMEN KUB CLINICAL INDICATION: constipation , no bowel movement for 3 weeks COMPARISON: None TECHNIQUE: AP view of the abdomen. FINDINGS: Moderate stool is present in the right colon. There is scattered gas through the transverse colon. Bowel gas pattern is unremarkable. No abnormal calcifications are evident. XR/XR KUB IMPRESSION: Moderate stool in the right colon. Electronically signed by: Herberth Colon MD 02/22/2025 04:04 PM EDT
--- NOTE | 2025-02-22 15:59 | ED_ITS ---
HPI - General Adult General Chief complaint: General Medical Stated complaint: Constipation, nausea Time Seen by Provider: 02/22/25 20:30 Source: patient Limitations: no limitations History of Present Illness ED Provider: Chelsie Jackson PA-C HPI narrative: 69-year-old male with a history of hypertension, hyperlipidemia, chronic constipation, GERD, Parkinson's, Lewy body dementia and anxiety who presents with constipation x3 weeks. Patient states he is only having minimal bowel movements. Associated nausea. Denies abdominal distention, active vomiting, fever or inability to pass flatus. Patient states he has been using [id number] Colace daily with the MiraLax daily. Related Data Home Medications ?Medication ?Instructions ?Recorded ?Confirmed amlodipine 10 mg tablet 10 mg PO DAILY 04/09/2110/20 aspirin 81 mg chewable tablet 1 tab PO DAILY 04/09/21 10/31/24 carvedilol 25 mg tablet 25 mg PO BID 04/09/21 nitroglycerin 0.4 mg sublingual 0 mg sublingual 10/31/24 tablet rosuvastatin 40 mg tablet 40 mg PO DAILY 04/09/2110/20 losartan 100 mg tablet 100 mg PO DAILY 10/08/2206/15 mirtazapine 7.5 mg tablet 7.5 mg PO BEDTIME 10/08/22 0 10/31/24 escitalopram oxalate 10 mg tablet 10 mg PO DAILY 04/1310/31/24 (Lexapro) carbidopa 25 mg-levodopa 100 mg 3 tab PO TID 10/31/24 10/31/24 tablet trazodone 100 mg tablet 150 mg PO BEDTIME 10/31/24 0 10/31/24 Previous Rx's ?Medication ?Instructions ?Recorded naproxen 500 mg tablet 500 mg PO BID PRN pain 30 da ys #60 12/29/24 tabs docusate sodium 100 mg capsule 100 mg PO DAILY #90 cap s 02/21/25 (Colace) omeprazole 20 mg capsule,delayed 20 mg PO BID #180 cap s 02/21/25 release polyethylene glycol 3350 17 17 g PO BID #238 grams 08/16 gram/dose oral powder (Miralax) ondansetron 4 mg disintegrating 4 mg PO Q8H PRN nausea and 02/22/25 tablet vomiting #10 tabs Allergies Allergy/AdvReac Type Severity Reaction Status Date / Time peanut (PEANUT) Allergy Mild RASH Verified 02/22/25 15:47 shellfish derived (SHELLFISH Allergy Mild RASH Verified 02/22/25 15:47 DERIVED) gluten Allergy Muscle Pain Verified 02/22/25 15:47 Peanuts Allergy Unknown Oral Uncoded 02/22/25 15:47 outbreak Shellfish Allergy Unknown Chest Uncoded 02/22/25 15:47 pain, difficulty breathing Review of Systems 2 Review of Systems: Yes all other systems are reviewed and are negative Constitutional: Constitutional: Denies fatigue and Denies fever(s) Cardiovascular: Cardiovascular: Denies chest pain and Denies dyspnea Respiratory: Respiratory: Denies dyspnea Gastrointestinal: Gastrointestinal: Denies abdominal pain, Denies bloating, Reports constipation, Reports nausea and Denies vomiting Endocrine: Endocrine: Denies fatigue PMFSH Past Medical History Attestation statement: The following information was validated with the patient. Medical History Hypokalemia Lewy body dementia Parkinsons Surgical History H/O prostatectomy Family History Family History Brother Substance use disorder Father Substance use disorder Sister Substance use disorder Social History Social History Housing: House Patient Tobacco Use Status: Former Tobacco user Years Smoked: 35 years ago e-Cigarette/Vaping Use: Never Used Second Hand Smoke Exposure: No Advance Directives: No Advance Directives Information Provided: No service: No Current occupational status: retired Cognitive needs: No Hearing needs: No Vision needs: No Physical Exam ED Vital Signs: Vital Signs - 24 hr 02/22/25 15:44 02/22/25 20:10 02/22/25 21:11 Temperature 98.3 F 98.4 F Pulse Rate 90 83 84 Respiratory Rate 18 17 Blood Pressure 153/84 H 161/85 H 146/81 H Pulse Oximetry 95 95 Oxygen Delivery Method Room Air Room Air 02/22/25 21:14 02/22/25 21:15 02/22/25 21:28 Temperature 98.0 F Pulse Rate 84 87 80 Respiratory Rate 16 Blood Pressure 150/89 H 145/87 H 144/84 H Pulse Oximetry 94 Oxygen Delivery Method Room Air 02/22/25 21:54 Temperature 98.0 F Pulse Rate 80 Respiratory Rate 16 Blood Pressure 144/84 H Pulse Oximetry 94 Oxygen Delivery Method Room Air BMI result Body Mass Index 26.7 Const Other: Alert well-appearing, sitting up in bed drinking dwayne ester Orientation/consciousness: patient oriented x3 Resp Effort & Inspection: normal respiratory effort Cardio Other: Normal peripheral perfusion GI Other: Soft, nondistended nontender Skin Other: Warm dry no rash Neuro General: patient oriented x3, gait normal, no focal motor deficits and CN's II- XI intact bilaterally Psych Other: Cooperative Course Course Course Narrative: This is a Rapid Medical Examination (RME) performed by Misha sAencio PA-C in triage. Full HPI, ROS, assessment and treatment plan per primary provider in the Main ED. Hx: 69 yo M biba for eval of constipation x3 weeks w/ only small hard bms. using miralax + stool softeners at home. stabbing LLQ pain. voiding less today. nausea no vomiting. Plan: labs, UA, kub Medications Administered Discontinued Medications Generic Name Dose Route Start Last Admin Trade Name Freq PRN Reason Stop Dose Admin Ondansetron HCl 4 mg 02/22/25 21:04 02/22/25 21:10 Ondansetron Odt 4 Mg Tab.Rapdis TRANSLINGU 02/22/25 21:05 4 mg ONCE ONE Administration Medical Decision Making Medical Decision Making [facility] Narrative: 69-year-old male with a history of hypertension, hyperlipidemia, chronic constipation, GERD, Parkinson's, Lewy body dementia and anxiety who presents with constipation x3 weeks. Patient states he is only having minimal bowel movements. Associated nausea. Denies abdominal distention, active vomiting, fever or inability to pass flatus. Patient states he has been using [id number] Colace daily with the MiraLax daily. Problem: Age, chronic constipation, Parkinson's, dementia and anxiety History: Per patient I have considered the following differential diagnoses: Constipation, obstipation, fecal impaction, bowel obstruction Plan: Screening labs and a KUB were ordered from triage, there was no obstructive pattern, there was no fecal impaction he has moderate stool burden. He has no lab abnormalities. We will send with an aggressive bowel regimen. Sending with Zofran to be used as needed I have independently reviewed the following tests: Labs: No leukocytosis, not anemic, no electrolyte abnormality KUB:ECHNIQUE: AP view of the abdomen. FINDINGS: Moderate stool is present in the right colon. There is scattered gas through the transverse colon. Bowel gas pattern is unremarkable. No abnormal calcifications are evident. XR/XR KUB IMPRESSION: Moderate stool in the right colon. Differential Diagnosis Differential Diagnoses: The differential diagnosis associated with the presentation includes See [facility] Admission/Observation Consideration of admission/observation: Escalation of care including admission/observation considered Not applicable Lab Data [facility] Lab Attestation statement: I reviewed the patient's lab results. 02/22/25 16:51 02/22/25 16:51 Labs: Lab Results 02/22/25 Range/Units 16:51 WBC 9.8 (4.8-10.8) X10*3/uL RBC 4.76 (4.60-5.80) X10*6/uL Hgb 15.4 (14.0-18.0) g/dl Hct 44.3 (42.0-52.0) % MCV 93.1 (80.0-98.0) fL MCH 32.4 (27.0-33.0) pg MCHC 34.8 (31.0-36.0) g/dl RDW 12.0 (11.0-16.0) % Plt Count 170 D (160-400) X10*3/uL MPV 8.4 L (9.4-12.4) fL Immature Gran % (Auto) 0.2 (0.0-0.4) % Neut % (Auto) 79.8 H (45-73) % Lymph % (Auto) 9.5 L (20-40) % Loving % (Auto) 8.6 (2-11) % Eos % (Auto) 1.5 (0-4) % Baso % (Auto) 0.4 (0-2) % Lymph # (Auto) 0.9 L (1.2-4.9) X10*3/uL Loving # (Auto) 0.8 (0.1-1.2) X10*3/uL Eos # (Auto) 0.2 (0.0-0.4) X10*3/uL Baso # (Auto) 0.0 (0.0-0.2) X10*3/uL Abs Immat Gran (auto) 0.02 (0.00-0.03) X10*3/uL Absolute Neuts (auto) 7.8 (2.0-8.3) x10*3/uL Absolute Nucleated RBC 0.000 (0.0-0.012) X10*3/uL Nucleated RBC % (auto) 0.0 (0.0-0.2) /100WBC Sodium 139 (135-145) mmol/L Potassium 4.8 (3.3-5.1) mmol/L Chloride 104 (96-108) mmol/L Carbon Dioxide 28 (22-29) mmol/L Anion Gap 12 (12-20) BUN 18 H (9-16) mg/dL Creatinine 1.14 (0.5-1.4) mg/dL Estim Creat Clear Calc 59.1 Estimated GFR > 60 Random Glucose 116 H (60-115) mg/dL Calcium 8.9 D (8.4-10.2) mg/dL Magnesium 2.2 (1.6-2.6) mg/dL Total Bilirubin 0.7 (0.0-1.0) mg/dL AST 38 H (5-37) U/L ALT 12 (0-40) U/L Alkaline Phosphatase 90 (39-117) U/L Total Protein 6.9 (6.5-8.0) g/dL Albumin 4.4 (3.5-5.0) g/dL Radiology Impression Discussion of test interpretation with radiology: I have reviewed the radiologist's reading. Discharge Plan Discharge Clinical Impression: Constipation Patient Disposition: Home, Self-Care Instructions: Constipation (ED) Additional Instructions: All of your screening labs were normal. The x-ray revealed that you are constipated. See home care instructions. You should be using [id number] Colace twice a day, this is a stool softener. You can use MiraLax, drink the solution every hour until you begin having multiple large volume bowel movements. Once you alleviate your current stool burden, stay on the Colace daily, in the MiraLax daily, to help prevent further episodes of constipation. Uses Zofran as needed for nausea. Follow up with your primary care provider as needed. Prescriptions: New ondansetron 4 mg tablet,disintegrating 4 mg PO Q8H PRN (Reason: nausea and vomiting) Qty: 10 0RF No Action naproxen 500 mg tablet 500 mg PO BID PRN (Reason: pain) 30 Days Qty: 60 0RF docusate sodium [Colace] 100 mg capsule 100 mg PO DAILY Qty: 90 0RF polyethylene glycol 3350 [Miralax] 17 gram/dose powder 17 g PO BID Qty: 238 0RF omeprazole 20 mg capsule,delayed release(DR/EC) 20 mg PO BID Qty: 180 1RF aspirin 81 mg tablet,chewable 1 tab PO DAILY nitroglycerin 0.4 mg tablet, sublingual 0 mg sublingual amlodipine 10 mg tablet 10 mg PO DAILY carvedilol 25 mg tablet 25 mg PO BID rosuvastatin 40 mg tablet 40 mg PO DAILY carbidopa-levodopa 25-100 mg tablet 3 tab PO TID escitalopram oxalate [Lexapro] 10 mg tablet 10 mg PO DAILY losartan 100 mg tablet 100 mg PO DAILY mirtazapine 7.5 mg tablet 7.5 mg PO BEDTIME trazodone 100 mg tablet 150 mg PO BEDTIME Interventions: ED Discharge Assessment Last Done: 02/22/25 21:54 Discharge Date/Time: 02/22/25 21:57 Print Language: Andorran
[2025-02-22 16:56] LABS: MANUAL DIFF FLAG NO
[2025-02-22 16:57] LABS: Hematocrit 44.3 % (42.0-52.0); Hemoglobin 15.4 g/dl (14.0-18.0); Imm Gran Abs Auto 0.02 X10*3/uL (0.00-0.03); Imm Gran Pct Auto 0.2 % (0.0-0.4); Lymphocytes Absolute Auto 0.9 X10*3/uL (1.2-4.9); Mean Corpuscular HGB Conc 34.8 g/dl (31.0-36.0); Mean Corpuscular Hemoglobin 32.4 pg (27.0-33.0); Mean Corpuscular Volume 93.1 fL (80.0-98.0); NRBC Abs Auto 0.000 X10*3/uL (0.0-0.012); NRBC Pct Auto 0.0 /100WBC (0.0-0.2); Platelet Count 170 X10*3/uL (160-400); Red Blood Count 4.76 X10*6/uL (4.60-5.80); White Blood Count 9.8 X10*3/uL (4.8-10.8)
[2025-02-22 17:11] LABS: Alanine Aminotransferase 12 U/L (0-40); Albumin Level 4.4 g/dL (3.5-5.0); Alkaline Phosphatase 90 U/L (39-117); Anion Gap 12 (12-20); Aspartate Amino Transferase 38 U/L (5-37); Blood Urea Nitrogen 18 mg/dL (9-16); Calcium 8.9 mg/dL (8.4-10.2); Carbon Dioxide 28 mmol/L (22-29); Chloride 104 mmol/L (96-108); Creatinine Clr Calc Pharmacy 59.1; Estimated Glomerular Filt Rate > 60; Magnesium 2.2 mg/dL (1.6-2.6); Potassium 4.8 mmol/L (3.3-5.1); Sodium 139 mmol/L (135-145); Total Protein 6.9 g/dL (6.5-8.0)
--- OUTSIDE RECORDS SUMMARY | 2025-02-22 20:43 | XMS_ITS | Encounter Summary ---
Author Organization [facility] Address [address] [place] [address] Phone Care Team Providers Care Ambulance Paramedic Name Role Phone Jere Diop NP Primary Care Provider + Reason for Visit * Reason Comments Med Change Request Encounter Details Date Type Department Care Team (Late st Contact Info) Description 01/27/2022 Refill [facility] Department of Neurology [address] [place] [address], [address] [place] [address] Brenda Tee MD, MSc [address] [place] [phone] [email or web address] Med Change Request Social History Tobacco Use Types Packs/Day Years Used Date Smoking Tobacco: Former Smokeless Tobacco: Never Sex and Gender Information Value Date Recorded Sex Assigned at Not on file Legal Sex Male 3:57 PM EDT Gender Identity Not on file Sexual Orientation Not on file documented as of this encounter Progress Notes * Lizabeth Samayoa MA - 01/28/2022 7:44 AM EDT Please see pharmacy comment down below Pharmacy comment: Alternative Requested:NOT ON FORMULARY. documented in this encounter Plan of Treatment Upcoming Encounters Date Type Department Care Team (Late st Contact Info) Description 05/01/2025 10:30 AM EST Telemedicine [facility] Department of Neurology [address] [facility], [address] [place] [address], [address] [place] [address] Brenda Tee MD, MSc [address] [place], [place] [address] [place] [phone] [email or web address] documented as of this encounter Visit Diagnoses Not on filedocumented in this encounter Care Teams Ambulance Paramedic Relationship Specialty Start Date End Date Jere Diop NP [address] [facility] [address] [place] [address] PCP - General Family Medicine 01/02/21 documented as of this encounter Additional Source Comments The information contained in this document represents components of the legal health record. It is not the complete legal health record.[email or web address]
--- OUTSIDE RECORDS SUMMARY | 2025-02-22 20:43 | XMS_ITS | Clinical Summary ---
Author Organization [facility] Address [address] [place] [address] Phone Care Team Providers Care Director Of The Biophysics Facility Name Role Phone Jere Diop NP Primary Care Provider + Medications therapeutic multivitamin tablet Take 1 tablet by mouth daily. Active aspirin 81 MG EC tablet Take 81 mg by mouth daily. Active omeprazole (PRILOSEC) 20 mg TbEC Take 20 mg by mouth daily. Active carvedilol (COREG) 25 MG tablet Take 25 mg by mouth 2 (two) times a day with meals. Active amLODIPine (NORVASC) 10 MG tablet Take 10 mg by mouth daily. Active rosuvastatin (CRESTOR) 40 MG tablet Take 40 mg by mouth daily. Active nitroglycerin (NITROSTAT) 0.[address] 0.4 mg under the tongue every 5 (five) minutes as needed for chest pain. Active NAPROXEN ORAL Take by mouth. Active carbidopa-levodopa (SINEMET) 25-100 mg per tablet Take 3 tablets by mouth 3 (three) times a day. 810 tablet 3 10/18/19 25 Active traZODone (DESYREL) 150 MG tabletIndications: Parkinson's disease without dyskinesia or fluctuating manifestations Take 1 tablet (150 mg total) by mouth nightly at bedtime. 90 tablet 3 12/21/19 25 Active escitalopram oxalate (LEXAPRO) 10 MG tablet TAKE 1 TABLET (10 MG TOTAL) BY MOUTH EVERY MORNING. 90 tablet 3 01/26/20 25 Active escitalopram oxalate (LEXAPRO) 10 MG tablet TAKE 1 TABLET (10 MG TOTAL) BY MOUTH EVERY MORNING. 90 tablet 3 02/02/20 24 025 Discontinued Active Problems Problem Noted Date Diagnosed Date Hypertension 03/22/2021 Encounters Date Type Department Care Team Description 01/23/2025 Refill [facility] Department of Neurology [address], 8th [address], [address] [place] [address] Brenda Tee MD, MSc Medication Refill 12/20/2024 Orders Only [facility] Department of Neurology [address], [address] Foor, [address] [place] [address] Brenda Tee MD, MSc Parkinson's disease without dyskinesia or fluctuating manifestations from Last 3 Months Social History Tobacco Use Types Packs/Day Years Used Date Smoking Tobacco: Former Smokeless Tobacco: Never Education Answer Date Recorded Are you interested in more education? Not on ozzy e 10/16/2022 Are you concerned about learning? Not on file 10/16/2022 No 10/16/2022 No 10/16/2022 Digital Access Answer Date Recorded No 11/18/2022 No 11/18/2022 Reliable internet access at home? Not on file 11/18/2022 Device with a working camera? Not on file Sex and Gender Information Value Date Recorded Sex Assigned at Not on file Legal Sex Male 3:57 PM EDT Gender Identity Not on file Sexual Orientation Not on file Last Filed Vital Signs Vital Sign Reading Time Taken Comments Blood Pressure 160/103 03/18/2021 9:31 AM EDT Pulse 75 03/18/2021 9:30 AM EDT Temperature 36.8 C (98.2 F) 03/18/2021 9:30 AM EDT Respiratory Rate - - Oxygen Saturation 97% 03/18/2021 9:30 AM EDT Inhaled Oxygen Concentration - - Weight 88 kg (194 lb) 03/18/2021 9:30 AM EDT Height 175.3 cm (5' 9 ) 03/18/2021 9:30 AM EDT Body Mass Index 28.65 03/18/2021 9:30 AM EDT Plan of Treatment Upcoming Encounters Date Type Department Care Team (Late st Contact Info) Description 05/01/2025 10:30 AM EST Telemedicine [facility] Department of Neurology [address] [facility], [address] [place] [address], [address] [place] [address] Brenda Tee MD, MSc [address] [place] [phone] [email or web address] Health Maintenance Due Date Last Done Comments BLOOD PRESSURE 1955 SMOKING Hx and SMOKELESS TOBACCO SCREENING 12/25/1968 HEPATITIS C SCREENING 12/25/1973 COLOGUARD 12/25/2000 COLONOSCOPY 12/25/2000 COLORECTAL CANCER SCREENING 12/25/2000 FIT TEST 12/25/2000 FOBT 12/25/2000 SIGMOIDOSCOPY 12/25/2000 VIRTUAL COLONOSCOPY 12/25/2000 ZOSTER VACCINES (1 of 2) 12/25/2005 Adult Td,Tdap Booster 07/13/2019 07/13/2009 ABDOMINAL AORTIC ANEURYSM (AAA) SCREENING 12/25/2020 DEPRESSION SCREENING 09/26/2023 09/25/2022, 09/26/19 23 COVID-19 VACCINE ( season) 2024 04/20/2023, 10/19/2020, 09/27/2020 LIPID PANEL 10/10/2027 10/09/2022, 09/21, 07/17/2022, Additional history exists RSV VACCINE (1 - 1-dose 75+ series) 12/25/2030 PNEUMOCOCCAL VACCINES (50+ years) Completed 04/10/2022, 05/20/2014 HEPATITIS A VACCINES Aged Out No long er eligible based on patient's age to complete this topic HIB VACCINES Aged Out No longer eligi ble based on patient's age to complete this topic MENINGOCOCCAL VACCINES (ACWY) Aged Out No longer eligible based on patient's age to complete this topic MENINGOCOCCAL VACCINES (B) Aged Out N o longer eligible based on patient's age to complete this topic Medical Devices Not on file Insurance MEDICARE PART A & B [employer] MEDEX SUPPLEMENT MEDICARE PART A & B [employer] MED[employer] SUPPLEMENT MEDICARE PART A & B [employer] SUPPLEMENT MEDICARE PART A & B [employer] SUPPLEMENT MEDICARE PART A & B [facility] MEDEX SUPPLEMENT MEDICARE PART A & B [employer] MED[employer] SUPPLEMENT MEDICARE PART A & B [employer] MED[employer] SUPPLEMENT MEDICARE PART A & B [employer] MED[employer] SUPPLEMENT MEDICARE PART A & B [employer] MEDEX SUPPLEMENT Advance Directives For more information, please contact: [phone] (9AM - 5PM [facility], Thursday-Thursday) Documents on File Type Date Recorded Patient Engineering Teacher Expl anation Healthcare Proxy 04/08/2021 2:29 PM hcp 2 021 Care Teams Director Of The Biophysics Facility Relationship Specialty Start Date End Date Jere Diop NP [facility] [place] [address] PCP - General Family Medicine 01/02/21 Additional Source Comments The information contained in this document represents components of the legal health record. It is not the complete legal health record.[facility]
--- OUTSIDE RECORDS SUMMARY | 2025-02-22 20:43 | XMS_ITS | Patient Health Record ---
Author Organization [facility] Address [address] [place] [address] Care Team Providers Care Anime Artist Name Role Phone Jere Navas Primary Care Provider Henry Barbosa Unavailable [phone] Allergies Allergen (clinical drug ingredient) Drug/Non Drug [...] Once a day; Duration: 30 day(s) Unknown Carbidopa-Levodopa 25mg/100mg 2 tablets [...] Once a day; Duration: 30 day(s) Unknown amLODIPine Besylate 10 MG 1 tablet Orally Once a day Active Ipratropium Ida Unknown Nitroglycerin 0.4 mg every 5 min as needed Active Valtrex 1 GM Unknown Rosuvastatin Calcium 40 MG 1 tablet Orally Once a day Active Acetic Acid-HC Drops Unknown Omeprazole 20 mg twice a day A ctive Problems Problem Type SNOMED Code ICD Code Onset Dates Problem Status W/U Status Risk Notes Problem 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 confirmed Problem Plantar fasciitis (866646357) Plantar Fasciitis (728.71) Active confirmed Plan Of Treatment No Information Insurance Providers Payer Name Payer Address Payer Phone Subscriber Number Group Number Insured Name Patient Relationship to Insured Coverage Start Date Coverage End Date Medicare National Govt Svcs Inc [address] [place] [address] [id number] Michael Lama Self - patient is the insured [email or web address] [address] [place] [address] [phone] [id number] Michael Lama Self - patient is the insured Medical (General) History Medical History History ICD Code low back pain hypertension prostate cancer herpes labialis anxiety allergic rhinitis Arthritis Chicken pox CAD (Cholesterol) Depression Heart disease Numbness Parkinsons disease Reflux ( GERD) Surgical History Surgery Date(Month/Year) radical prostatectomy 2009 colonoscopy 10/10/2006 tonsillectomy 1960 2 stents 2014
--- OUTSIDE RECORDS SUMMARY | 2025-02-22 20:43 | XMS_ITS | Encounter Summary ---
Author Organization [facility] Address [address] [place] [address] Phone Care Team Providers Care Photonics Engineering Technician Name Role Phone Alisa Davalos MD Primary Care Provider Jere Diop NP Primary Care Provider + Reason for Referral * Consultation (Elective) - Closed Specialty Diagnoses / Procedures Referred By Kristin park Referred To Contact Neurology Diagnoses Senile dementia, uncomplicated Alisa Davalos MD Phone: tel: fax: [address] [address] Phone: tel: Referral ID Status Reason Start Date Expiration Date Visits Re quested Visits Authorized [id number] Closed 09/10/2020 09/10/2021 1 1 Encounter Details Date Type Department Care Team (Latest Contact Info) Description 09/10/2020 Transcribe Orders [facility] Department of Neurology [address] [place] [address], 8th Floor, [address] [place] [address] Alisa Davalos MD [address] [facility] [place] [address] Senile dementia, uncomplicated (Primary Dx) Social History Tobacco Use Types Packs/Day Years Used Date Smoking Tobacco: Never Assessed Sex and Gender Information Value Date Recorded Sex Assigned at Not on file Legal Sex Male 3:57 PM EDT Gender Identity Not on file Sexual Orientation Not on file documented as of this encounter Plan of Treatment Upcoming Encounters Date Type Department Care Team (Late st Contact Info) Description 05/01/2025 10:30 AM EST Telemedicine [facility] Department of Neurology [address] [place] [address], [address] [place] [address], [address] [place] [address] Brenda Tee MD, MSc [address] [place] [address] [place] [phone] [email or web address] Scheduled Referrals Name Type Priority Associated Diagnoses Orde r Schedule Ambulatory referral to [facility] Neurology Outpatient Referral Routine Senile dementia, uncomplicated Ordered: 09/10/2020 documented as of this encounter Visit Diagnoses Diagnosis Senile dementia, uncomplicated- Primary documented in this encounter Care Teams Photonics Engineering Technician Relationship Specialty Start Date End Date Alisa Davalos MD [address] [facility] [place] [address] PCP - General Internal Medicine 09/03/20 01/01/21 Jere Diop NP [address] [facility] [address] [facility] [place] [address] PCP - General Family Medicine 01/02/21 documented as of this encounter Additional Source Comments The information contained in this document represents components of the legal health record. It is not the complete legal health record.[facility]
== END 2025-02-22 21:57 | disposition home or self-care (01) ==
PROVIDERS: Physician Assistant Medical; Emergency Provider Emergency Medicine Emergency Medical Services
DX: K59.00 Constipation, unspecified (principal); G20.A1 Parkinson's disease without dyskinesia, without mention of fluctuations; F02.80 Dementia in other diseases classified elsewhere, unspecified severity, without behavioral disturbance, psychotic disturbance, mood disturbance, and anxiety; G31.83 Neurocognitive disorder with Lewy bodies; I10 Essential (primary) hypertension; Z87.19 Personal history of other diseases of the digestive system; Z79.899 Other long term (current) drug therapy
CPT/HCPCS: 36415; 74018; 80053; 83735; 85025; 99283

== ENCOUNTER → 2025-02-22 15:46 | Outpatient (BNV) | payer MEDICARE, SELFPAY | PROVIDERS: Visit Provider Radiology Diagnostic Radiology | DX: K59.00 Constipation, unspecified (principal) | CPT/HCPCS: 74018 ==

== ENCOUNTER 2025-02-23 11:25 | Outpatient (AMB) | payer MEDICARE, SELFPAY ==
--- OUTSIDE RECORDS SUMMARY | 2024-01-21 05:30 | XMS_ITS ---
Author Organization [facility] [place] Address [address] [place] [address] Care Team Providers Care Assistant Dean Of Students Name Role Phone Jere Navas Primary Care Provider Unav Henry Collins Unavailable [phone] Allergies Allergen (clinical drug ingredient) Drug/Non Drug [...] a day; Duration: 30 day(s) Unknown Ipratropium [place] Unknown Valtrex 1 GM Unknown Acetic Acid-HC [...] 01/21/2024 Encounters Encounter Location Date [facility] [address] [place] [address] 01/21/2024 Henry Diaz Plan Of Treatment No Information Progress Notes * Michael LAMADOB:1955 (69 yo M)Acc No.[id number]:01/21/2024 Progress Notes Patient: Michael MAYS Provider: Gena Diaz DPM :1955 A ge:68 Y S ex:Male Date:01/21/2024 Address:[address] [place] [phone] Pcp:Jere Diop NP-KIMBERLI Subjective: * Chief Complaints: [...] enies. C ardiovascular: Pacemaker d enies. M INFECTIOUS DISEASES PHYSICIAN d enies. W PW d enies. C [...] Orally Once a day , Unknown Ipratropium B[place] , Unknown Lisinopril 5 MG Tablet 1 [...] Date: 01/21/2024 Generated for Americo hartley/Demi/Fernando on: 02/23/2025 01:05 PM EDT
[2025-02-23 11:58] VITALS: BP 142/80; PULSE 80; TEMP 36.6; O2SAT 94; BMI 26.5
--- NOTE | 2025-02-23 11:58 | MHC.OFFWIV ---
Intake Vital Signs 02/23/25 11:58 Height 5 ft 8 in Weight 174 lb BMI 26.5 BP 142/80 H Blood Pressure Location Lt brachial Position Sitting Pulse 80 Pulse Source Pulse Oximeter Temp 97.9 F Temp Source Oral Pulse Oximetry (%) 94 Intake Visit Reasons: EP abdominal pain Patient Tobacco Use Status: Former Tobacco user Allergies peanut (PEANUT) Allergy (Mild, Verified 02/23/25 12:03) RASH shellfish derived (SHELLFISH DERIVED) Allergy (Mild, Verified 02/23/25 12:03) RASH gluten Allergy (Verified 02/23/25 12:03) Muscle Pain Peanuts Allergy (Unknown, Uncoded 02/22/25 15:47) Oral outbreak Shellfish Allergy (Unknown, Uncoded 02/22/25 15:47) Chest pain, difficulty breathing Do you need a note to return to daycare/school/sports/work: No HPI HPI Comments History of Present Illness Details 69 y/o Male patient who presents to the walk in clinic with c/o Constipation x 3 weeks. Pt was admitted yesterday at [facility] for this similar condition and was discharged home on Miralax - he was told to take Miralax every hour until diarrhea. He came in to the walk in clinic today for EDF - reports that he was told to f/u with PCP. Today Pt reports moving his bowels - had one episode this morning. Denies nausea or vomiting. Denies abdominal pain. [facility] Medical History Hypokalemia Lewy body dementia Parkinsons Surgical History H/O prostatectomy Family History Brother Substance use disorder Father Substance use disorder Sister Substance use disorder Social History Housing: House Patient Tobacco Use Status: Former Tobacco user Years Smoked: 35 years ago e-Cigarette/Vaping Use: Never Used Second Hand Smoke Exposure: No service: No Current occupational status: retired Cognitive needs: No Hearing needs: No Vision needs: No Review of Systems Const All systems reviewed & are unremarkable except as noted in HPI and below Physical Exam Vital Signs: Last Vital Signs Temp 97.9 F 02/23/25 11:58 Pulse 80 02/23/25 11:58 BP 142/80 H 02/23/25 11:58 Pulse Ox 94 02/23/25 11:58 BMI result Body Mass Index 26.5 Const General: comfortable and no acute distress Nutritional Appearance: well nourished Orientation/consciousness: patient oriented x3 GI Inspection: No distended Palpation (GI): Soft to palpation, not firm, nontender, no guarding, not rigid and No hepatosplenomegaly present Auscultation: normal bowel sounds Neuro General: patient oriented x3, gait normal and moves all extremities Psych Speech and movement: Normal speech and movement present Assessment & Plan Assessment & Plan (1) Constipation: Code(s): K59.00 - Constipation, unspecified Plan: Patient is moving his bowels now Continue on Miralax qhr until diarrhea. May take Stool softener BID Increase Fiber intake. Coding Level of Care Code Est Pt Level 4 (80287) Diagnoses Constipation K59.00 Time Spent (min) 20
--- OUTSIDE RECORDS SUMMARY | 2025-02-23 13:06 | XMS_ITS | Encounter Summary ---
Author Organization [facility] Address [address] [place] [address] Phone Care Team Providers Care Ice Plant Operator Name Role Phone Alisa Davalos MD Primary Care Provider Jere Diop NP Primary Care Provider + Reason for Referral * Consultation (Elective) - Closed Specialty Diagnoses / Procedures Referred By Kristin park Referred To Contact Neurology Diagnoses Senile dementia, uncomplicated Alisa Davalos MD Phone: tel: fax: [address] [address] Phone: tel: Referral ID Status Reason Start Date Expiration Date Visits Re quested Visits Authorized [id number] Closed 09/10/2020 09/10/2021 1 1 Encounter Details Date Type Department Care Team (Latest Contact Info) Description 09/10/2020 Transcribe Orders [facility] Department of Neurology [address] [place] [address], 8th Floor, [address] [place] [address] Alisa Davalos MD [address] [facility] [place] [address] Senile dementia, uncomplicated (Primary Dx) Social History [...] Info) Description 05/01/2025 10:30 AM EST Telemedicine [facility] Department of Neurology [address] [place] [address], [address] [place] [address], [address] [place] [address] Brenda Tee MD, MSc [address] [place] [address] [place] [phone] [email or web address] Scheduled Referrals Name Type Priority Associated Diagnoses Orde r Schedule Ambulatory referral to [facility] Neurology Outpatient Referral Routine Senile dementia, uncomplicated Ordered: 09/10/2020 documented as of this encounter Visit Diagnoses Diagnosis Senile dementia, uncomplicated- Primary documented in this encounter Care Teams Ice Plant Operator Relationship Specialty Start Date End Date Alisa Davalos MD [address] [facility] [place] [address] PCP - General Internal Medicine 09/03/20 01/01/21 Jere Diop NP [address] [facility] [place] [address] PCP - General Family Medicine 01/02/21 documented as of this encounter Additional Source Comments The information contained in this document represents components of the legal health record. It is not the complete legal health record.[facility]
--- OUTSIDE RECORDS SUMMARY | 2025-02-23 13:06 | XMS_ITS | Encounter Summary ---
Author Organization [facility] Address [address] [place] [address] Phone Care Team Providers Care Dividing Machine Operator Helper Name Role Phone Jere Diop NP Primary Care Provider + Reason for Visit * Reason Comments Med Change Request Encounter Details Date Type Department Care Team (Late st Contact Info) Description 01/27/2022 Refill [facility] Department of Neurology [address] [place] [address], [address] [place] [address] Brenda Tee MD, MSc [address] [place] [phone] [email or web address] Med Change Request Social History Tobacco Use [...] Info) Description 05/01/2025 10:30 AM EST Telemedicine [facility] Department of Neurology [address] [facility], [address] [place] [address], [address] [place] [address] Brenda Tee MD, MSc [address] [place], [place] [address] [place] [phone] [email or web address] documented as of this encounter Visit Diagnoses Not on filedocumented in this encounter Care Teams Dividing Machine Operator Helper Relationship Specialty Start Date End Date Jere Diop NP [address] [place] [address] PCP - General Family Medicine 01/02/21 documented as of this encounter Additional Source Comments The information contained in this document represents components of the legal health record. It is not the complete legal health record.[facility]
--- OUTSIDE RECORDS SUMMARY | 2025-02-23 13:06 | XMS_ITS | Patient Health Record ---
Author Organization [facility] Address [address] [place] [address] Care Team Providers Care Blast Furnace Blower Name Role Phone Jere Navas Primary Care Provider Henry Barbosa Unavailable [phone] Allergies Allergen (clinical drug ingredient) Drug/Non Drug [...] tablet Orally Once a day Active Ipratropium [place] Unknown Nitroglycerin 0.4 mg every 5 min as needed Active Valtrex 1 GM Unknown Rosuvastatin Calcium 40 MG 1 tablet Orally Once a day Active Acetic Acid-HC Drops Unknown Omeprazole 20 mg twice a day A ctive Problems Problem Type SNOMED Code ICD Code Onset Dates Problem Status W/U Status Risk Notes Problem 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 [place] (unspec.) (239.2) Active confirmed Problem Plantar fasciitis (116693688) Plantar Fasciitis (728.71) Active confirmed Plan Of Treatment No Information Insurance Providers Payer Name Payer Address Payer Phone Subscriber Number Group Number Insured Name Patient Relationship to Insured Coverage Start Date Coverage End Date Medicare National Govt Svcs Inc [address] [place] [address] [id number] Michael Lama Self - patient is the insured [employer] [address] [place] [address] [phone] [id number] Michael Lama Self - patient is the insured Medical (General) History Medical History History ICD Code low back pain hypertension prostate cancer herpes labialis anxiety allergic rhinitis Arthritis Chicken pox CAD (Cholesterol) Depression Heart disease Numbness Parkinsons disease Reflux ( GERD) Surgical History Surgery Date(Month/Year) radical prostatectomy 2009 colonoscopy 10/10/2006 tonsillectomy 1960 2 stents 2014
--- OUTSIDE RECORDS SUMMARY | 2025-02-23 13:06 | XMS_ITS | Clinical Summary ---
Author Organization [facility] Address [address] [place] [address] Phone Care Team Providers Care Learning And Development Consultant Name Role Phone Jere Diop NP Primary [...] Type Department Care Team Description 01/23/2025 Refill [facility] Department of Neurology [address] [facility], 8th Floor, [address] [place] [address] Brenda Tee MD, MSc Medication Refill 12/20/2024 Orders Only [facility] Department of Neurology [address] [facility], [address] Foor, [address] [place] [address] Brenda Tee MD, MSc Parkinson's disease without [...] Info) Description 05/01/2025 10:30 AM EST Telemedicine [facility] Department of Neurology [address] [facility], [address] [place] [address], [address] [place] [address] Brenda Tee MD, MSc [address] [place] [phone] [email or web address] Health Maintenance Due Date Last Done Comments [...] file Insurance MEDICARE PART A & B [employer] MEDEX SUPPLEMENT MEDICARE PART A & B [employer] SUPPLEMENT MEDICARE PART A & B [employer] SUPPLEMENT MEDICARE PART A & B [employer] SUPPLEMENT MEDICARE PART A & B [facility] MEDEX SUPPLEMENT MEDICARE PART A & B [employer] SUPPLEMENT MEDICARE PART A & B [employer] SUPPLEMENT MEDICARE PART A & B [employer] MEDEX SUPPLEMENT [employer] Address: [place] [address] MEDICARE PART A & B [employer] MEDEX SUPPLEMENT Advance Directives For more information, please contact: [phone] (9AM - 5PM [facility], Thursday-Thursday) Documents on File Type Date Recorded Patient Aircraft Worker Expl anation Healthcare Proxy 04/08/2021 2:29 PM hcp 2 021 Care Teams Learning And Development Consultant Relationship Specialty Start Date End Date Jere Diop NP [facility] [address] PCP - General Family Medicine 01/02/21 Additional Source Comments The information contained in this document represents components of the legal health record. It is not the complete legal health record.[facility]
== END 2025-02-23 12:22 | disposition home or self-care (01) ==
PROVIDERS: Visit Provider Nurse Practitioner Family
DX: K59.00 Constipation, unspecified (principal)

== ENCOUNTER → 2025-02-23 11:25 | Outpatient (BNVA) | payer MEDICARE, SELFPAY | PROVIDERS: Visit Provider Nurse Practitioner Family | DX: K59.00 Constipation, unspecified (principal) | CPT/HCPCS: 99212 ==

== ENCOUNTER 2025-05-12 08:14 | Outpatient (REF) | payer MEDICARE, SELFPAY ==
--- OUTSIDE RECORDS SUMMARY | 2024-01-21 04:30 | XMS_ITS ---
Author Organization [facility] [place] Address [address] [place] [address] Care Team Providers Care Specialty Plant Supervisor Name Role Phone Jere Navas Primary Care Provider Unav Henry Rodriguez Unavailable [phone] Allergies Allergen (clinical drug ingredient) Drug/Non Drug Allergy documented on EMR Reaction Allergy Type Onset Date Status Information temporarily unavailable peanuts-peanut butter Unknown Drug Allergy Active Information temporarily unavailable Codeine Unknown Drug Allergy Active Information temporarily unavailable shellfish Unknown Drug Allergy Active Medications Medication SIG (Take, Route, Frequency, Duration) Notes Start Date End Date Status Lisinopril 5 MG 1 tablet Orally Once a day; Duration: 30 day(s) Unknown Atenolol-Chlorthalidon e 100-25 MG 1 tablet Orally Once a day; Duration: 30 day(s) Unknown Ipratropium Iola Unknown Valtrex 1 GM Unknown Acetic Acid-HC Drops Unknown Aspir-Low 81 MG 1 tablet Orally Once a day Active Cosamin DS Active Multivitamins as directed Orally Active Equate 1 tablet as needed Active Naproxen 500 mg as neededequ Active Culturelle - as directed Orally Active Losartan Potassium 100 MG 1 tablet Orally Once a day Active amLODIPine Besylate 10 MG 1 tablet Orally Once a day Active Rosuvastatin Calcium 40 MG 1 tablet Orally Once a day Active Omeprazole 20 mg twice a day A ctive Carbidopa-Levodopa 25mg/100mg 2 tablets three times a day Active Escitalopram Oxalate 10 MG 1 tablet Orally Once a day Active Nitroglycerin 0.4 mg every 5 min as needed Active Vital Signs Height 5 ft 8 in in 01/21/2024 Weight 175 lbs lbs 01/21/2024 BMI 26.61 kg/m2 01/21/2024 Encounters Encounter Location Date [facility] [address] [place] [address] 01/21/2024 Henry Posada Plan Of Treatment No Information Progress Notes * Michael LAMADOB:1955 (69 yo M)Acc No.[id number]:01/21/2024 Progress Notes Patient: Michael MAYS Provider: Gena Diaz DPM :1955 A ge:68 Y S ex:Male Date:01/21/2024 Address:[address] [place] [id number] Pcp:Jere Diop NP-KIMBERLI Subjective: * Chief Complaints: * * ROS: G eneral/Constitutional: Nausea d enies. V omiting d enies. H joni Thirst d enies. L oss appetite d enies. C hills d enies. F atigue d enies.?Fever d enies. N ight Sweats d enies. U nexplained weight loss d enies. U nexplained weight gain d enies. H EENTM: Dentures d enies. D izziness d enies. G lasses/contacts d enies. R etinopathy d enies. B lurred/double vision d enies. T MJ?denies. D ischarge/drainage d enies. I mplants d enies. S ore throat d enies. D ental implants d enies. H luan of hearing d enies. D ifficulty chewing/swallowing/speaking d enies. N ose bleeds d enies. S ore mouth d enies. ? R espiratory: On Oxygen d enies. P neumonia/pleurisy d enies.?Bronchitis d enies. E mphysema d enies. C oughing d enies. C ough blood?denies. S hortness of breath d enies. W heezing d enies. C ardiovascular: Pacemaker d enies. M YOKER MACHINE OPERATOR d enies. W PW d enies. C HF d enies. H eart attack d enies. S eptal defect d enies. R apid beat d enies. C hest pain d enies. A trial Fib. d enies. M urmur/Palpitations d enies. G astrointestinal: Hemorrhoids d enies. S tomach/Abdominal pain d enies. D ark blood stool d enies. I rritable bowel d enies. C onstipation d enies. D iarrhea d enies. H ematology: Swelling d enies. C lots d enies. V aricose Veins d enies. B ruising d enies. B leeding problem d enies. G enitourinary: Blood urine d enies. F requent/Painfu/urination/bladder control d enies. K idney stones d enies. I nfection (UTI) d enies. N ephropathy d enies. s ex trans dis (STD) d enies. P rostate d enies. M usculoskeletal: Hammertoes d enies. B unions d enies. B ack Pain d enies. M uscle Cramps/ Resting d enies. M uscle cramps / walking d enies.?Generalized aches and pains d enies. W eakness d enies. I nteg.: Castellanos d enies. S cars d enies. C orns/calluses?denies. I ngrown nails d enies. P ainful nails d enies. O pen Sores d enies. R ashes d enies. N eurologic: Difficulty sleeping d enies. B rain disorder d enies. N umbness d enies. B alance trouble d enies. C onfusion d enies. F ainting/blackouts d enies. T ingling d enies. T remors d enies. * Medical History: L ow back pain, Hypertension, Prostate cancer, Herpes labialis, Anxiety, Allergic rhinitis, Arthritis, Chicken pox, CAD (Cholesterol), Depression, Heart disease, Numbness, Parkinsons disease, Reflux ( GERD). * Surgical History: r adical prostatectomy 2009, colonoscopy 10/10/2006, tonsillectomy 1960, 2 stents 2013. * Medications: T aking Carbidopa-Levodopa , Notes to Pharmacist: 25mg/100mg 2 tablets three times a day, Taking Escitalopram Oxalate 10 MG Tablet 1 tablet Orally Once a day , Taking Nitroglycerin , Notes to Pharmacist: 0.4 mg every 5 min as needed, Taking Rosuvastatin Calcium 40 MG Tablet 1 tablet Orally Once a day , Taking Losartan Potassium 100 MG Tablet 1 tablet Orally Once a day , Taking amLODIPine Besylate 10 MG Tablet 1 tablet Orally Once a day , Taking Omeprazole , Notes to Pharmacist: 20 mg twice a day, Taking Culturelle - Capsule as directed Orally , Taking Aspir-Low 81 MG Tablet Delayed Release 1 tablet Orally Once a day , Taking Equate , Notes to Pharmacist: 1 tablet as needed, Taking Naproxen , Notes to Pharmacist: 500 mg as neededequ, Taking Cosamin DS , Taking Multivitamins Tablet as directed Orally , Unknown Valtrex 1 GM , Unknown Acetic Acid-HC Drops , Unknown Atenolol- Chlorthalidone 100-25 MG Tablet 1 tablet Orally Once a day , Unknown Ipratropium Iola , Unknown Lisinopril 5 MG Tablet 1 tablet Orally Once a day * Allergies: C odeine, shellfish, peanuts-peanut butter. Objective: * Vitals: H t: 5 ft 8 in, Wt:175 lbs, BMI:26.61, Shoe size: 8.5, Ht-cm: 172.72 cm, Wt-k.38 kg. Assessment: Plan: * Treatment: * Images: * The named appointment provid er may or may not be the originator of this progress note, and it is not deemed complete until electronically signed by the appointment provider. Sign off status: Pending * Provider: Gena Diaz DPM Date: 0 01/21/2024 Generated for Americo hartley/Demi/Fernando on: 07/12/2024 08:18 AM EST
--- OUTSIDE RECORDS SUMMARY | 2025-05-12 08:18 | XMS_ITS | Encounter Summary ---
Author Organization [facility] Address [address] [place] [address] Phone Care Team Providers Care Quality Assurance Auditor Name Role Phone Jere Diop NP Primary Care Provider + Reason for Visit * Reason Comments Med Change Request Encounter Details Date Type Department Care Team (Late st Contact Info) Description 01/27/2022 Refill [facility] Department of Neurology [address] [place] [address], [address] [place] [address] Brenda Tee MD, MSc [address] [place] [id number] [email or web address] Med Change Request Social History Tobacco Use [...] Care Team (Late st Contact Info) Description 10/23/2025 1:30 PM EDT Telemedicine [facility] Department of Neurology [address], 8th Floor, [address] [place] [address] Brenda Tee MD, MSc [address] [place] [phone] [email or web address] documented as of this encounter Visit Diagnoses Not on filedocumented in this encounter Care Teams Quality Assurance Auditor Relationship Specialty Start Date End Date Jere Diop NP [address] [place] [address] PCP - General Family Medicine 01/02/21 documented as of this encounter Additional Source Comments The information contained in this document represents components of the legal health record. It is not the complete legal health record.[facility]
--- OUTSIDE RECORDS SUMMARY | 2025-05-12 08:18 | XMS_ITS | Clinical Summary ---
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 810 tablet 3 5 Active traZODone (DESYREL) 150 MG tabletIndications:P arkinson's disease without dyskinesia or fluctuating manifestations Take 1 tablet (150 mg total) by mouth nightly at bedtime. 90 tablet 3 5 Active escitalopram oxalate (LEXAPRO) 10 MG tablet TAKE 1 TABLET (10 MG TOTAL) BY MOUTH EVERY MORNING. 90 tablet 3 Active Active Problems Problem Noted Date Diagnosed Date Hypertension 03/22/2021 Encounters Date Type Department Care Team Description 05/02/2025 Telephone [facility] [place] [address] [place] [address], [address] [place] [address], [address] [place] [address] Brenda Tee MD, MSc 05/01/2025 10:30 AM EST Telemedicine [facility] [place] of [place]rology [address] [place] [address], [address] [place] [address], [address] [place] [address] Brenda Tee MD, MSc Parkinson's disease without dyskinesia or fluctuating manifestations (Primary Dx) from Last 3 Months Social History Tobacco [...] Info) Description 10/23/2025 1:30 PM EDT Telemedicine [facility] Department of Neurology [address] [place] [address], 8th Floor, [address] [place] [address] Brenda Tee MD, MSc [address] [place] [phone] [email or web address] Health Maintenance Due Date Last Done Comments BLOOD PRESSURE 1955 SMOKING Hx and SMOKELESS TOBACCO SCREENING 12/25/1968 HEPATITIS C SCREENING 12/25/1973 COLOGUARD 12/25/2000 COLONOSCOPY 12/25/2000 COLORECTAL CANCER SCREENING 12/25/2000 FIT TEST 12/25/2000 FOBT 12/25/2000 SIGMOIDOSCOPY 12/25/2000 VIRTUAL COLONOSCOPY 12/25/2000 ZOSTER VACCINES (1 of 2) 12/25/2005 Adult Td,Tdap Booster 07/13/2019 07/13/2009 ABDOMINAL AORTIC ANEURYSM (AAA) SCREENING 12/25/2020 DEPRESSION SCREENING 09/26/2023 09/25/2022, 09/26/19 23 INFLUENZA VACCINE (#1) 2025 , 03/10/2021, 03/10/2021, Additional history exists COVID-19 VACCINE ( season) 2025 04/20/2023, 10/19/2020, 09/27/2020 LIPID PANEL 10/10/2027 10/09/2022, 09/21, 07/17/2022, Additional history exists RSV VACCINE (1 - 1-dose 75+ series) 12/25/2030 PNEUMOCOCCAL VACCINES (50+ years) Completed 04/10/2022, 05/20/2014 HEPATITIS A VACCINES Aged Out No long er eligible based on patient's age to complete this topic HIB VACCINES Aged Out No longer eligi ble based on patient's age to complete this topic IPV VACCINES Aged Out No longer eligi ble based on patient's age to complete this topic MENINGOCOCCAL VACCINES (ACWY) Aged Out No longer eligible based on patient's age to complete this topic MENINGOCOCCAL VACCINES (B) Aged Out N o longer eligible based on patient's age to complete this topic Medical Devices Not on file Insurance MEDICARE PART A & B [employer] SU[employer]LEMENT MEDICARE PART A & B [employer] SUPPLEMENT MEDICARE PART A & B [employer] SUPPLEMENT MEDICARE PART A & B [employer] SUPPLEMENT MEDICARE PART A & B [facility] MEDEX SUPPLEMENT MEDICARE PART A & B [employer] SUPPLEMENT MEDICARE PART A & B [employer] SU[employer]MENT MEDICARE PART A & B Member Subscriber Plan / Payer ( fective 2020-) Name:Michael Lama Member ID:[id number] Relation to Subscriber:Self Name:Michael Lama Subscriber ID:[id number] Payer ID:[id number] Group ID:Not on file Type:Medicare Address: [facility] [employer] [address] [place] [phone] [employer] SUPPLEMENT MEDICARE PART A & B [employer] SUPPLEMENT Advance Directives For more information, please contact: [phone] (9AM - 5PM Gabrielle/[facility], Thursday-Thursday) Documents on File Type Date Recorded Patient Delivery Nurse Expl anation Healthcare Proxy 04/08/2021 2:29 PM hcp 2 021 Care Teams Roll Mill Operator Relationship Specialty Start Date End Date Jere Diop NP [facility] [place] [address] PCP - General Family Medicine 01/02/21 Additional Source Comments The information contained in this document represents components of the legal health record. It is not the complete legal health record.[facility]
--- OUTSIDE RECORDS SUMMARY | 2025-05-12 08:18 | XMS_ITS | Encounter Summary ---
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 Role Phone Alisa Davalos MD Primary Care Provider Jere Diop NP Primary Care Provider + Reason for Referral * Consultation (Elective) - Closed Specialty Diagnoses / Procedures Referred By Kristin park Referred To Contact Neurology Diagnoses Senile dementia, uncomplicated Alisa Davalos MD Phone: tel: fax: [address] [address] Phone: tel: Referral ID Status Reason Start Date Expiration Date Visits Re quested Visits Authorized [id number] Closed 09/10/2020 09/10/2021 1 1 Encounter Details Date Type Department Care Team (Latest Contact Info) Description 09/10/2020 Transcribe Orders [facility] Department of Neurology [address] [place] [address], 8th Floor, [address] [place] [address] Alisa Davalos MD [address] [place] [address] Senile dementia, uncomplicated (Primary Dx) Social History [...] Info) Description 10/23/2025 1:30 PM EDT Telemedicine [facility] Department of Neurology [address] [place] [address], 8th Floor, [address] [place] [address] Brenda Tee MD, MSc [address] [place] [phone] [email or web address] Scheduled Referrals Name Type Priority Associated Diagnoses Orde r Schedule Ambulatory referral to [facility] Neurology Outpatient Referral Routine Senile dementia, uncomplicated Ordered: 09/10/2020 documented as of this encounter Visit Diagnoses Diagnosis Senile dementia, uncomplicated- Primary documented in this encounter Care 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 It is not the complete legal health record.[facility]
--- OUTSIDE RECORDS SUMMARY | 2025-05-12 08:19 | XMS_ITS | Patient Health Record ---
Author Organization [facility] Address [address] [place] [address] Care Team Providers Care Hoseman Name Role Phone Jere Navas Primary Care Provider Bibi patrickHenry Hudson Unavailable [phone] Allergies Allergen (clinical drug ingredient) Drug/Non Drug [...] tablet Orally Once a day Active Ipratropium [place] Unknown Nitroglycerin 0.4 mg every 5 min as needed Active Valtrex 1 GM Unknown Rosuvastatin Calcium 40 MG 1 tablet Orally Once a day Active Acetic Acid-HC Drops Unknown Omeprazole 20 mg twice a day A ctive Problems Problem Type SNOMED Code ICD Code Onset Dates Problem Status W/U Status Risk Notes Problem 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 [place] (unspec.) (239.2) Active confirmed Problem Plantar fasciitis (545541214) Plantar Fasciitis (728.71) Active confirmed Plan Of Treatment No Information Insurance Providers Payer Name Payer Address Payer Phone Subscriber Number Group Number Insured Name Patient Relationship to Insured Coverage Start Date Coverage End Date Medicare National Govt Svcs Inc [address] [place] [address] [id number] Michael Lama Self - patient is the insured [employer] [address] [place] [address] [phone] [id number] Michael Lama Self - patient is the insured Medical (General) History Medical History History ICD Code low back pain hypertension prostate cancer herpes labialis anxiety allergic rhinitis Arthritis Chicken pox CAD (Cholesterol) Depression Heart disease Numbness Parkinsons disease Reflux ( GERD) Surgical History Surgery Date(Month/Year) radical prostatectomy 2009 colonoscopy 10/10/2006 tonsillectomy 1960 2 stents 2014
[2025-05-12 09:58] LABS: MANUAL DIFF FLAG NO
[2025-05-12 10:15] LABS: Appearance Urine Clear; Glucose Urine UA Negative (Negative); PH 5.5 (5.0-9.0); Specific Gravity - Urine 1.025 (1.005-1.025)
[2025-05-12 10:16] LABS: Hematocrit 47.4 % (42.0-52.0); Hemoglobin 15.4 g/dl (14.0-18.0); Imm Gran Abs Auto 0.02 X10*3/uL (0.00-0.03); Imm Gran Pct Auto 0.3 % (0.0-0.4); Lymphocytes Absolute Auto 1.7 X10*3/uL (1.2-4.9); Mean Corpuscular HGB Conc 32.5 g/dl (31.0-36.0); Mean Corpuscular Hemoglobin 30.8 pg (27.0-33.0); Mean Corpuscular Volume 94.8 fL (80.0-98.0); NRBC Abs Auto 0.000 X10*3/uL (0.0-0.012); NRBC Pct Auto 0.0 /100WBC (0.0-0.2); Platelet Count 217 X10*3/uL (160-400); Red Blood Count 5.00 X10*6/uL (4.60-5.80); White Blood Count 7.3 X10*3/uL (4.8-10.8)
[2025-05-12 10:49] LABS: Alanine Aminotransferase 6 U/L (0-40); Albumin Level 4.3 g/dL (3.5-5.0); Alkaline Phosphatase 84 U/L (39-117); Anion Gap 9 (12-20); Aspartate Amino Transferase 34 U/L (5-37); Blood Urea Nitrogen 13 mg/dL (9-16); Calcium 9.0 mg/dL (8.4-10.2); Carbon Dioxide 30 mmol/L (22-29); Chloride 108 mmol/L (96-108); Cholesterol 134 mg/dL (<200); Estimated Glomerular Filt Rate > 60; HDL Cholesterol 41 mg/dL (>40); Potassium 4.1 mmol/L (3.3-5.1); Sodium 143 mmol/L (135-145); Total Protein 6.7 g/dL (6.5-8.0); Triglycerides 92 mg/dL (<150)
== END 2025-05-12 08:15 | disposition home or self-care (01) ==
LOC: HO.HMGCLDS 08:14
PROVIDERS: PCP Nurse Practitioner Family; Visit Provider Nurse Practitioner Family
DX: Z12.5 Encounter for screening for malignant neoplasm of prostate (principal); I10 Essential (primary) hypertension; E78.5 Hyperlipidemia, unspecified
CPT/HCPCS: 36415; 80053; 80061; 81003; 84153; 84443; 85025

== ENCOUNTER 2025-05-15 12:27 | Outpatient (AMB) | payer MEDICARE, SELFPAY ==
[2025-05-15 12:43] VITALS: BP 160/100; PULSE 112; RESP 16; O2SAT 95; BMI 26.8
--- NOTE | 2025-05-15 12:43 | A.OFFVIS_ITS ---
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 Accompanied by: Self / Same As Patient Allergies peanut (PEANUT) Allergy (Mild, Verified 05/15/25 13:07) RASH shellfish derived (SHELLFISH DERIVED) Allergy (Mild, Verified 05/15/25 13:07) RASH gluten Allergy (Verified 05/15/25 13:07) Muscle Pain Peanuts Allergy (Unknown, Uncoded 05/15/25 13:07) Oral outbreak Shellfish Allergy (Unknown, Uncoded 05/15/25 13:07) Chest pain, difficulty breathing Medication List - Last Reconciled 05/15/25 by Jere Diop, [facility]- amlodipine 10 mg PO DAILY aspirin 1 tab PO DAILY carbidopa-levodopa 25-100 mg 3 tabs PO TID carvedilol 25 mg PO BID docusate sodium 100 mg PO BID escitalopram oxalate (Lexapro) 10 mg PO DAILY lactulose 20 grams (30 mL) PO BID PRN 10 days losartan 100 mg PO DAILY mirtazapine 7.5 mg PO BEDTIME naproxen 500 mg PO BID PRN 30 days nitroglycerin 0 mg sublingual omeprazole 20 mg PO BID ondansetron 4 mg PO Q8H PRN polyethylene glycol 3350 (Miralax) 17 grams PO BID rosuvastatin 40 mg PO DAILY sennosides (Senna Lax) 8.6 mg PO BID PRN 30 days trazodone 150 mg PO BEDTIME HPI SWV G0439 HPI Details AWV: PPP in scan pile. HPI Comments History of Present Illness Details Chief Complaint The patient presents for an annual wellness visit and management of Parkinson's disease, constipation, and anxiety. History of Present Illness The patient is a 69 year old individual presenting for an annual wellness visit and management of chronic conditions. The patient has a history of Parkinson's disease and is under the care of a neurologist. Due to a recent increase in constipation, the current neurologist is arranging a referral to another specialist in [place]. For constipation, the patient is currently taking Senna twice a day and Colace once a day, which provides some relief with good and bad days. The patient also reports increasing anxiety, restlessness, and a possible component of claustrophobia. The patient is scheduled to see a therapist with a background in Parkinson's disease and will also receive therapy through the neurology team. HTN: pt reports it's white coat syndrome , takes his BP at home once a week, it's much more stable . Social History - Functional Status: The patient has a s light shuffling gait but can tandem walk without difficulty. Health Maintenance - Annual wellness visit completed. - Neurological follow-up: The patient santos s ongoing care with a neurology team and will receive therapy through them. - Gastroenterology consult: The patient will see a specialist in [place] for increased constipation. - Mental health: The patient is schedule d to see a therapist with a background in Parkinson's disease. Review of Systems - Constitutional: Reports feeling restle ss. - Gastrointestinal: Reports constipation , which has recently increased. denies any rectal bleeding - Psychiatric: Reports increasing anxiet y and claustrophobia. - Neurological: History of Parkinson's d isease. Denies memory problems. -denies any cp, sob, dizziness, SANTOS, blur red vision Physical Exam left before heart and lungs could be assessed Results Plan 1. Parkinson's Disease The patient has a known history of Parkinson's disease with associated symptoms including a slight shuffling gait, though tandem walk is intact. The patient will continue to follow up with the neurology team and will receive therapy through them. 2. Constipation The patient reports a recent increase in constipation despite taking Senna twice daily and Colace once daily. The plan is to increase Colace to twice a day. A referral will be made by the patient's neurologist to a specialist in [place] for further evaluation. 3. Anxiety The patient reports increasing anxiety, restlessness, and a component of claustrophobia. The patient is scheduled to see a therapist with a background in Parkinson's disease in the near future for management. 4. Annual Wellness Visit The patient presented for an annual wellness visit and performed well, demonstrating very good memory and appearing sharp during the assessment. Continue with routine health maintenance and scheduled specialist follow-ups. Discussion Notes I discussed the patient's ongoing management for Parkinson's disease, constipation, and anxiety. To address the increasing constipation, I recommended increasing the patient's Colace dose to twice a day while continuing Senna, and I noted the planned specialist visit in [place]. We also reviewed the plan for the patient to see a therapist soon to manage the increasing anxiety and restlessness. I informed the patient that the wellness exam today went well, noting the patient's sharp memory. Patient Instructions - For your constipation, please increase your Colace medication to twice a day. - Continue taking your Senna medication twice a day as you have been. - Please follow up with the specialist i sandi [place] for your constipation, as arranged by your neurology team. - Keep your upcoming appointment with [facility] therapist who specializes in Parkinson's to help with your anxiety. - Continue with your regular appointment s and therapy with your neurology team for Parkinson's disease. [facility] Medical History (Updated 05/15/25 @ 13:15 by PILAR Doherty) Hypokalemia Parkinsons Surgical History H/O prostatectomy Family History Brother Substance use disorder Father Substance use disorder Sister Substance use disorder Social History Housing: House Patient Tobacco Use Status: Former Tobacco user Years Smoked: 35 years ago e-Cigarette/Vaping Use: Never Used Second Hand Smoke Exposure: No service: No Current occupational status: retired Cognitive needs: No Hearing needs: No Vision needs: No Questionnaire Medicare Wellness Checkup What [age] What gender do you identify with?: male During the past 4 weeks, how much have you been bothered by emotional problems such as feeling anxious, depressed, irritable, sad or downhearted, and blue?: quite a bit During the past 4 weeks, has your physical & emotional health limited your social activities with family, friends, neighbors, or groups?: quite a bit During the past 4 weeks, how much bodily pain have you generally had?: moderate pain During the past 4 weeks, was someone available to help you if you needed & wanted help?: yes, quite a bit During the past 4 weeks, what was the hardest physical activity you could do for at least 2 minutes?: moderate Can you get to places out of walking distance without help? (For eg., can you travel alone on buses, taxis or drive your car?): Yes Can you go shopping for groceries or clothes without someone's help?: Yes Can you prepare your own meals?: No Can you do your housework without help?: Yes Because of any health problems, do you need the help of another person with your personal care needs such as eating, bathing, dressing or getting around the house?: No Can you handle your own money without help?: No During the past 4 weeks, how would you rate your health in general?: poor During the past 4 weeks how have things been going for you?: good & bad parts about equal Are you having difficulties driving your car?: no Do you always fasten your seat belt when you are in a car?: yes, usually During past 4 weeks, have you been bothered by the following: never: Sexual problems?, Trouble eating well?, Teeth or denture problems? and Problems using the telephone?, sometimes: Falling or dizzy when standing up and always: Tiredness or fatigue? Have you fallen 2 or more times in the past year?: No Are you afraid of falling?: Yes Are you a smoker?: no During the past 4 weeks, how many drinks of wine, beer, or other alcoholic beverages did you have?: no alcohol at all Do you exercise for about 20 minutes 3 or more times a week?: yes, some of the time Have you been given information to help with the following?: yes: Hazards in your house that might hurt you? and yes: Keeping track of your medications? How often do you have trouble taking medicines the way you have been told to take them?: I always take medicine as prescribed How confident are you that you can control & manage most of your health problems?: somewhat confident What is your race?: White Mini Mental State Exam (MMSE) Orientation What is the (year) (season) (date) (day) (month)?: year, season, date, day and month Where are we (state) (county) (town or city) (hospital) (floor)?: state, county, town or city, hospital/clinic and floor Registration Name of 3 unrelated objects clearly and slowly, then ask patient to repeat all 3 of them. (1st repeat determines score. Make sure they can repeat all three): object 1, object 2 and object 3 Attention & Calculation (CHOOSE ONE) Spell WORLD backwards (DLROW): 5 letters Recall Ask patient to repeat the 3 items from question #3.: object 1, object 2 and object 3 Language Show patient a wristwatch & ask what it is. Repeat for pencil.: watch and pencil Ask the patient to repeat the phrase 'No ifs, ands, or buts' after you.: correct Ask the patient to 'take a piece of paper with their right hand' 'fold paper in half' 'place paper on floor': take paper in right hand Print the sentence 'CLOSE YOUR EYES' on a piece. If patient actually closes eyes then score.: followed written direction Give patient a blank piece of paper & ask to write a sentence. Score if it contains a noun & verb.: sentence contains subject and verb Ask patient to copy figure of intersecting pentagons exactly. Score if all 10 angles & 2 intersects are included.: all 10 angles present & 2 are intersected Score Score: 28 Activity of Daily Living Bathing - sponge bath, tub bath or shower: receives no assistance (gets in/out by self, if usual bathing means Dressing - getting clothes from closets & drawers, including inner/outer garments & fasteners.: gets clothes & gets completely dressed without help Toileting - going to the 'toilet room' for urine/bowel elimination & cleaning self/arranging clothes: goes to toilet room, cleans self, arranges clothes without help Transfer: moves in & out of bed and chair without help (may use support object) Continence: controls urination/bowel movements completely by self Feeding: feeds self without help Total Score: 0 Information obtained from: patient Using telephone: independent Traveling: independent Shopping: independent Preparing meals: needs assistance (pre-made) Housework: independent Taking medicine: independent Managing money: needs assistance PHQ-9 Over the last 2 weeks, how often have you been bothered by any of the following problems? 1. Little interest or pleasure in doing things: nearly every day 2. Feeling down, depressed, or hopeless: more than half the days 3. Trouble falling or staying asleep, or sleeping too much: more than half the days 4. Feeling tired or having little energy: nearly every day 5. Poor appetite or overeating: not at all 6. Feeling bad about yourself - or that you are a failure or have let yourself or your family down: not at all 7. Trouble concentrating on things, such as reading the newspaper or watching television: several days 8. Moving or speaking so slowly that other people could have noticed. Or the opposite - being so fidgety or restless that you have been moving around a lot more than usual: nearly every day 9. Thoughts that you would be better off or of hurting yourself in some way: not at all Total score: 14 Depression Screening Interpretation: Positive (getting a therapist through his neurologist) Depression Screening Follow-up: Existing condition Depression Screening Done: Yes 22676 - PHQ-9 Billing: Yes Source: Developed by Drs. Osvaldo Fink, Selena Swenson, oRb Sweeney and colleagues, with an educational sonu from [employer]. Physical Exam Vital Signs: Last Vital Signs Pulse 112 H 05/15/25 12:43 Resp 16 05/15/25 12:43 BP 130/80 05/15/25 13:37 Pulse Ox 95 05/15/25 12:43 Oxygen Delivery Method Room Air 05/15/25 12:43 BMI result Body Mass Index 26.8 Neuro Other: neg rhomberg, able to tandem walk, able to stand from sitting position, passed whisper test. Assessment & Plan Assessment & Plan (1) Encounter for subsequent annual wellness visit (AWV) in Medicare patient: Code(s): Z00.00 - Encounter for general adult medical examination without abnormal findings (2) Constipation: Code(s): K59.00 - Constipation, unspecified (3) Parkinsons: Code(s): G20 - Parkinson's disease Plan . Medications: New docusate sodium 100 mg PO BID 180 tabs 0RF 90 days Discontinued polyethylene glycol 3350 (Miralax) Discontinued Reason: Doctor's Order 17 grams PO BID 238 grams 0RF Quality Reporting (2019) Depression/Bipolar (159/160/161/177) PHQ-9: Total score: 14 Coding Level of Care Code Medicare Subsequent (G0439) Est Pt Level 3 (60901) Diagnoses Encounter for subsequent annual wellness visit (AWV) in Medicare patient Z00.00 Constipation K59.00 Parkinsons G20 CPT Codes Advance Care Planning - Time spent: 1-15 minutes, on File ([id number]) Additional Codes PHQ-9 - 41652 - PHQ-9 Billing: Yes ([id number]) Advance Care Planning Forms completed: Health Care Proxy (already scanned), MOLST (scanned in already) and Living will (reports that this is done) Time spent: 1-15 minutes, on File Actual minutes spent: 8
[2025-05-15 13:37] VITALS: BP 130/80
== END 2025-05-15 14:08 | disposition home or self-care (01) ==
LOC: HO.HMCC 12:27
PROVIDERS: PCP Nurse Practitioner Family; Visit Provider Nurse Practitioner Family
DX: Z00.00 Encounter for general adult medical examination without abnormal findings (principal); K59.00 Constipation, unspecified; G20.C Parkinsonism, unspecified

== ENCOUNTER → 2025-05-15 12:27 | Outpatient (BNVA) | payer MEDICARE, SELFPAY | PROVIDERS: PCP Nurse Practitioner Family; Visit Provider Nurse Practitioner Family | DX: I10 Essential (primary) hypertension (principal); K59.00 Constipation, unspecified; G30.9 Alzheimer's disease, unspecified; Z13.31 Encounter for screening for depression; F41.9 Anxiety disorder, unspecified | CPT/HCPCS: 96127; 99212 ==